=== PATIENT | female | born 1935 | race Caucasian/White ===

== ENCOUNTER 2016-10-06 11:49 | Outpatient (CLI) | payer MEDICARE, MEDICAID | END 2016-10-06 11:50 | disposition home or self-care (01) | DX: M51.34 Other intervertebral disc degeneration, thoracic region (principal); M51.36 Other intervertebral disc degeneration, lumbar region ==

== ENCOUNTER 2017-10-16 15:08 | Emergency (ER) | payer MEDICARE, MEDICAID ==
--- NOTE | 2017-10-16 16:00 | ED Physician Documentation ---
History of Present Illness - Stated complaint Stated Complaint: N/V/DIZZY/COUGH - Chief complaint Chief Complaint: Abd Pain - History obtained from History obtained from: Patient - History of Present Illness Timing: How many days ago (4) - Treatment prior to arrival Treatment prior to arrival: She was seen by her primary physician yesterday and was prescribed Zithromax. - Additonal information Additional information: The patient is a pleasant 82-year-old female who presents with cough of 4 days duration. She reports that it is worse since yesterday. Her cough is nonproductive. She reports chills and sweats. She denies chest pain or shortness of breath. She denies headache or sore throat. She reports nausea, with occasional dry heaves. She denies diarrhea. She denies history of similar symptoms in the past. She was seen by her primary physician yesterday and was started on Zithromax. Her past medical history is significant for coronary artery disease, status post coronary stent. Review of Systems Constitutional: reports: Chills, Sweats Nose: denies: Congestion Throat: denies: Sore throat Cardiac: denies: Chest pain / pressure, Palpitations Respiratory: denies: Dyspnea, Cough GI: reports: Nausea, Vomiting (Occasional dry heaves.). 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 Cardiovascular: Coronary stent - Present Medications Home Medications: Ambulatory Orders Medication Instructions Recorded Confirmed Amlodipine Besylate 10 mg PO DAILY 12/15/14 12/15/14 Aspirin 325 mg ORAL DAILY 12/15/14 12/15/14 Carvedilol 6.25 mg PO BID 12/15/14 12/15/14 Ezetimibe [Zetia] 10 mg PO QD 12/15/14 12/15/14 Lisinopril [Prinivil] 5 mg PO DAILY 12/15/14 12/15/14 traMADol [Ultram] 50 mg PO Q4-6H 12/15/14 12/15/14 Benzonatate [Tessalon Perle] 100 mg PO BID PRN #14 capsule 10/16/17 - Allergies Allergies/Adverse Reactions: Allergies Allergy/AdvReac Type Severity Reaction Status Date / Time diphtheria toxoid,fluid Allergy Unknown Verified 10/16/17 15:22 metformin Allergy Unknown Verified 10/16/17 15:22 Penicillins Allergy Hives Verified 10/16/17 15:22 Fknccsf-Ouh-Yfp Reductase Allergy Unknown Verified 10/16/17 15:22 Inhibitor metals AdvReac Unknown Uncoded 12/15/14 15:14 - Social History Does the pt smoke?: No Smoking Status: Never smoker Does the pt drink ETOH?: No Does the pt have substance abuse?: No - Immunizations Immunizations are current?: Yes PD ED PE NORMAL - Vitals Vital signs reviewed: Yes (hypertensive) - General General: Alert and oriented X 3, Well developed/nourished - HEENT HEENT: Atraumatic, EOMI, Ears normal, Moist mucous membranes, Pharynx benign - Neck Neck: Supple, no meningeal sign, No adenopathy, No JVD - Cardiac Cardiac: Other (Regular rate, irregularly irregular rhythm.) - Respiratory Respiratory: Clear bilaterally, Other (Occasional coughing.) - Abdomen Abdomen: Soft, Non tender - Back Back: No CVA TTP - Derm Derm: No rash - Extremities Extremities: No edema, No calf tenderness / cord - Neuro Neuro: Alert and oriented X 3, No motor deficit, Normal speech Results - Vitals Vitals: Oxygen O2 Source Room air - EKG (time done) 16:02 Rate: Rate (enter#) (74) Rhythm: Atrial fibrillation [place]: Normal Intervals: Prolonged QT - Labs Labs: Laboratory Tests 10/16/17 10/16/17 10/16/17 15:58 16:25 16:25 WBC 5.3 RBC 4.25 Hgb 12.7 Hct 38.0 MCV 89.3 MCH 30.0 MCHC 33.5 RDW 12.8 Plt Count 174 MPV 7.2 L Neut # 3.8 Lymph # 0.7 L [place] # 0.7 Eos # 0.0 Baso # 0.1 Absolute Nucleated RBC 0.00 Nucleated RBC % 0.0 Sodium 135 Potassium 3.5 Chloride 95 L Carbon Dioxide 24 Anion Gap 16.0 H BUN 14 Creatinine 0.7 Estimated GFR (MDRD) 80 L Glucose 144 H Calcium 8.5 Troponin I B-Natriuretic Peptide Influenza A (Rapid) Negative Influenza B (Rapid) Negative Influenza Types A,B Ag - 10/16/17 10/16/17 16:25 16:25 WBC RBC Hgb Hct MCV MCH MCHC RDW Plt Count MPV Neut # Lymph # [place] # Eos # Baso # Absolute Nucleated RBC Nucleated RBC % Sodium Potassium Chloride Carbon Dioxide Anion Gap BUN Creatinine Estimated GFR (MDRD) Glucose Calcium Troponin I < 0.04 B-Natriuretic Peptide 369 H Influenza A (Rapid) Influenza B (Rapid) Influenza Types A,B Ag - Rads (name of study) 2-view CXR Radiology: Prelim report reviewed, EMP read contemporaneously, See rad report ( No consolidation. No pneumothorax or effusion.) PD MEDICAL DECISION MAKING - ED course Complexity details: reviewed old records, reviewed results, re-evaluated patient , considered differential, d/w patient ED course: The patient's presentation is most consistent with acute viral bronchitis. Chest x-ray reveals no evidence of pneumonia or vascular congestion. Electrocardiogram reveals atrial fibrillation with a controlled rate in the 70s. She denies any prior history of atrial fibrillation, and is not on anticoagulant medication. Her troponin is normal, but her BNP is slightly elevated at 369. Clinical presentation does not suggest congestive heart failure. I discussed with her the results of her workup, the importance of outpatient follow-up, as well as potentially worrisome signs or symptoms that should prompt reevaluation in the emergency department. She is being discharged with prescription for Tessalon Perles. Departure - Departure Disposition: 01 Home, Self Care Clinical Impression: Bronchitis Atrial fibrillation Qualifiers: Atrial fibrillation type: unspecified Qualified Code(s): I48.91 - Unspecified atrial fibrillation Condition: Stable Instructions: ED Afib, ED URI Viral Follow-Up: Sabi Perez MD [Primary Care Provider] - Prescriptions: Benzonatate [Tessalon Perle] 100 mg PO BID PRN #14 capsule PRN Reason: Cough Comments: You can use Tylenol as needed for fever or discomfort. You can take Tessalon as prescribed if needed for cough. Go ahead and complete the antibiotic that was prescribed by Dr. Perez. Follow up with your primary physician within 1 week. Call to schedule an appointment. Return to the emergency department if you develop increasing difficulty breathing, or otherwise worsening symptoms. Discharge Date/Time: 10/16/17 17:42
[2017-10-16 16:33] LABS: BASOPHILS # (AUTO) 0.1 10^3/uL (0.0-0.1); BASOPHILS % (AUTO) 1.5 %; EOSINOPHILS % (AUTO) 0.1 %; HGB - HEMOGLOBIN 12.7 g/dL (12.0-16.0); LYMPHOCYTES # (AUTO) 0.7 10^3/uL (1.5-3.5); LYMPHOCYTES % (AUTO) 13.2 %; MEAN CORPUSCULAR HGB CONC 33.5 g/dL (32.0-36.0); MEAN CORPUSCULAR VOLUME 89.3 fL (81.0-99.0); MEAN PLATELET VOLUME 7.2 fL (7.9-10.8); MONOCYTES # (AUTO) 0.7 10^3/uL (0.0-1.0); MONOCYTES % (AUTO) 13.5 %; NEUTROPHILS # (AUTO) 3.8 10^3/uL (1.5-6.6); NEUTROPHILS % (AUTO) 71.7 %; PLT - PLATELET COUNT 174 10^3/uL (130-450); RED BLOOD COUNT 4.25 10^6/uL (4.20-5.40); RED CELL DISTRIBUTION WIDTH 12.8 % (12.0-15.0); WHITE BLOOD COUNT 5.3 x10^3/uL (4.8-10.8)
[2017-10-16 16:43] LABS: CALCIUM 8.5 mg/dL (8.5-10.3); CREATININE 0.7 mg/dL (0.4-1.0)
[2017-10-16 16:58] VITALS: BP 148/86
--- NOTE | 2017-10-16 17:06 | XRAY Preliminary Report ---
Exam: XR CHEST 2 VIEW X-RAY IMPRESSION: 1. No consolidation. 2. No pneumothorax or effusion. [facility] SITE ID: [id number]
--- NOTE | 2017-10-16 17:09 | XRAY Report ---
EXAM: CHEST RADIOGRAPHY EXAM DATE: 10/16/2017 04:17 PM. CLINICAL HISTORY: Cough with sweats. COMPARISON: 02/05/2011. TECHNIQUE: 2 views. FINDINGS: Lungs/Pleura: No consolidation, effusions or pneumothorax. Mild bilateral bronchial wall thickening. Mediastinum: Heart and mediastinal contours are unremarkable. Other: None. IMPRESSION: 1. No consolidation. 2. No pneumothorax or effusion. [facility] Referring Provider Line: [phone] SITE ID: [id number]
== END 2017-10-16 17:42 | disposition home or self-care (01) ==
LOC: ED 15:08
DX: J40 Bronchitis, not specified as acute or chronic (principal); I48.91 Unspecified atrial fibrillation; I10 Essential (primary) hypertension; Z95.5 Presence of coronary angioplasty implant and graft; Z79.82 Long term (current) use of aspirin; I25.10 Atherosclerotic heart disease of native coronary artery without angina pectoris
CPT/HCPCS: 36415; 71046; 80048; 83880; 84484; 85025; 87275; 87276; 93005; 99283; 99284

== ENCOUNTER 2017-10-21 22:49 | Outpatient (CLI) | payer MEDICARE, MEDICAID | END 2017-10-21 22:50 | disposition short-term general hospital (02) | LOC: EMS 22:49 | PROVIDERS: ATTEND Surgery | DX: R07.89 Other chest pain (principal); R06.02 Shortness of breath | CPT/HCPCS: A0425; A0427 ==

== ENCOUNTER 2017-12-11 08:25 | Outpatient (CLI) | payer MEDICARE, MEDICAID ==
[2017-12-11 09:08] LABS: CALCIUM 8.7 mg/dL (8.5-10.3); CREATININE 0.8 mg/dL (0.4-1.0)
== END 2017-12-11 08:26 | disposition home or self-care (01) ==
LOC: LAB 08:25
PROVIDERS: ATTEND Registered Nurse
DX: I10 Essential (primary) hypertension (principal); I25.118 Atherosclerotic heart disease of native coronary artery with other forms of angina pectoris; E78.5 Hyperlipidemia, unspecified
CPT/HCPCS: 36415; 80048

== ENCOUNTER 2018-02-15 09:37 | Outpatient (CLI) | payer MEDICARE, MEDICAID ==
--- NOTE | 2018-02-15 11:28 | XRAY Report ---
THREE VIEW LEFT FOOT: 02/15/2018 CLINICAL INDICATION: Pain. FINDINGS: AP, lateral, oblique views of the left foot demonstrate osteoarthritis of the first metatarsophalangeal joint and interphalangeal joints. There is no evidence of acute fracture or dislocation. No radiopaque foreign body is seen in the soft tissues. IMPRESSION: OSTEOARTHRITIS. NO EVIDENCE OF ACUTE FRACTURE. TD: 02/15/2018 10:39
== END 2018-02-15 09:38 | disposition home or self-care (01) ==
LOC: DI 09:37
PROVIDERS: ATTEND Internal Medicine
DX: M19.072 Primary osteoarthritis, left ankle and foot (principal)

== ENCOUNTER 2018-02-19 08:51 | Outpatient (CLI) | payer MEDICARE, MEDICAID ==
[2018-02-19 09:12] LABS: BASOPHILS # (AUTO) 0.1 10^3/uL (0.0-0.1); BASOPHILS % (AUTO) 2.7 %; EOSINOPHILS # (AUTO) 0.1 10^3/uL (0.0-0.7); EOSINOPHILS % (AUTO) 2.9 %; HGB - HEMOGLOBIN 13.1 g/dL (12.0-16.0); LYMPHOCYTES # (AUTO) 1.4 10^3/uL (1.5-3.5); MEAN CORPUSCULAR HGB CONC 33.8 g/dL (32.0-36.0); MEAN CORPUSCULAR VOLUME 88.9 fL (81.0-99.0); MEAN PLATELET VOLUME 7.2 fL (7.9-10.8); MONOCYTES # (AUTO) 0.5 10^3/uL (0.0-1.0); MONOCYTES % (AUTO) 10.6 %; NEUTROPHILS # (AUTO) 2.6 10^3/uL (1.5-6.6); NEUTROPHILS % (AUTO) 53.8 %; PLT - PLATELET COUNT 254 10^3/uL (130-450); RED BLOOD COUNT 4.37 10^6/uL (4.20-5.40); RED CELL DISTRIBUTION WIDTH 13.1 % (12.0-15.0); WHITE BLOOD COUNT 4.8 x10^3/uL (4.8-10.8)
[2018-02-19 09:23] LABS: BILIRUBIN,URINE NEGATIVE (NEGATIVE); GLUCOSE, URINE (UA) NEGATIVE (NEGATIVE); KETONES,URINE (UA) NEGATIVE (NEGATIVE); LEUKOCYTE ESTERASE, URINE TRACE (NEGATIVE); NITRITE,URINE NEGATIVE (NEGATIVE); OCCULT BLOOD,URINE NEGATIVE (NEGATIVE); PH,URINE 7.5 PH (5.0-7.5); PROTEIN,URINE NEGATIVE (NEGATIVE); UROBILINOGEN,URINE 0.2 (NORMAL) E.U./dL (NORMAL)
[2018-02-19 09:29] LABS: ALBUMIN 4.3 g/dL (3.2-5.5); ALBUMIN/GLOBULIN RATIO 1.4 (1.0-2.2); ALKALINE PHOSPHATASE 54 IU/L (42-121); ALT ALANINE AMINOTRANSFERASE 15 IU/L (10-60); AST ASPARTATE AMINOTRANSFERASE 22 IU/L (10-42); BILIRUBIN,TOTAL 0.7 mg/dL (0.2-1.0); BUN - BLOOD UREA NITROGEN 14 mg/dL (6-20); CALCIUM 9.2 mg/dL (8.5-10.3); CARBON DIOXIDE - CO2 27 mmol/L (21-32); CHLORIDE 103 mmol/L (101-111); CHOL/HDL RATIO 2.6 (<4.4); CHOLESTEROL 152 mg/dL; CK- CREATINE KINASE 42 IU/L (22-269); CREATININE 0.6 mg/dL (0.4-1.0); GFR - MDRD 95 (>89); GLUCOSE 125 mg/dL (70-100); HDL CHOLESTEROL 59 mg/dL; LDL CHOLESTEROL,CALCULATED 74 mg/dL; LDL/HDL RATIO 1.3 (<4.4); SODIUM 137 mmol/L (135-145); TOTAL PROTEIN 7.3 g/dL (6.7-8.2); VLDL CHOLESTEROL 19 mg/dL
[2018-02-19 09:34] LABS: CREATININE,URINE 25.8 mg/dL; MICROALBUM/CREATININE RATIO,UR 108.5 ug/mg (<30.0); MICROALBUMIN,URINE 2.8 mg/dL (0-300.0)
[2018-02-19 09:39] LABS: CLARITY,URINE CLEAR (CLEAR)
[2018-02-19 09:40] LABS: BACTERIA,URINE None Seen /HPF (None Seen); RBC,URINE 0-5 /HPF (0-5); SQUAMOUS EPITHELIAL CELL,UR RARE Squamous (<= Few)
[2018-02-19 10:13] LABS: HB2 TOTAL 14.5 g/dL; HEMOGLOBIN A1C 0.71 g/dL; HEMOGLOBIN A1C % 6.6 % (4.6-6.2)
== END 2018-02-19 08:52 | disposition home or self-care (01) ==
LOC: LAB 08:51
PROVIDERS: ATTEND Internal Medicine
DX: Z79.899 Other long term (current) drug therapy (principal); I10 Essential (primary) hypertension; I25.10 Atherosclerotic heart disease of native coronary artery without angina pectoris; I48.92 Unspecified atrial flutter; M19.90 Unspecified osteoarthritis, unspecified site; M54.9 Dorsalgia, unspecified; E78.5 Hyperlipidemia, unspecified; E11.9 Type 2 diabetes mellitus without complications; L40.9 Psoriasis, unspecified; A60.9 Anogenital herpesviral infection, unspecified; C44.91 Basal cell carcinoma of skin, unspecified
CPT/HCPCS: 36415; 80053; 80061; 81001; 81003; 82043; 82550; 82570; 83036; 83721; 84443; 85025; 87086; 87181

== ENCOUNTER 2018-06-22 11:36 | Emergency (ER) | payer MEDICARE, MEDICAID ==
[2018-06-22 12:03] LABS: BASOPHILS # (AUTO) 0.1 10^3/uL (0.0-0.1); BASOPHILS % (AUTO) 1.5 %; EOSINOPHILS # (AUTO) 0.1 10^3/uL (0.0-0.7); EOSINOPHILS % (AUTO) 1.9 %; HGB - HEMOGLOBIN 12.5 g/dL (12.0-16.0); LYMPHOCYTES # (AUTO) 1.4 10^3/uL (1.5-3.5); LYMPHOCYTES % (AUTO) 23.2 %; MEAN CORPUSCULAR HGB CONC 35.1 g/dL (32.0-36.0); MEAN CORPUSCULAR VOLUME 88.3 fL (81.0-99.0); MEAN PLATELET VOLUME 6.8 fL (7.9-10.8); MONOCYTES # (AUTO) 0.6 10^3/uL (0.0-1.0); MONOCYTES % (AUTO) 9.6 %; NEUTROPHILS # (AUTO) 3.8 10^3/uL (1.5-6.6); NEUTROPHILS % (AUTO) 63.8 %; PLT - PLATELET COUNT 229 10^3/uL (130-450); RED BLOOD COUNT 4.04 10^6/uL (4.20-5.40); RED CELL DISTRIBUTION WIDTH 13.1 % (12.0-15.0)
[2018-06-22 12:13] LABS: ALBUMIN 4.3 g/dL (3.2-5.5); ALBUMIN/GLOBULIN RATIO 1.6 (1.0-2.2); BILIRUBIN,TOTAL 0.7 mg/dL (0.2-1.0); CALCIUM 9.1 mg/dL (8.5-10.3); CREATININE 0.7 mg/dL (0.4-1.0)
--- NOTE | 2018-06-22 12:16 | ED Physician Documentation ---
History of Present Illness - Stated complaint Stated Complaint: L ARM PX - Chief complaint Chief Complaint: Cardiac - Additonal information Additional information: 83-year-old female presents the emergency department with pain in her left bicep which started this morning around 6 AM when she awoke. Yesterday the patient reports working in her garden moving would. The patient denies any trauma or injury. The patient denies swelling of the left arm, redness or pain in any of the joints. The patient denies chest pain, dyspnea on exertion, shortness of breath or other associated symptoms. Symptoms are described as mild. No triggering factors. No relieving factors. Review of Systems Constitutional: denies: Fever, Fatigue Eyes: denies: Loss of vision Ears: denies: Ear pain Nose: denies: Rhinorrhea / runny nose Throat: denies: Dental pain / toothache Cardiac: denies: Chest pain / pressure Respiratory: denies: Cough GI: denies: Abdominal Pain : denies: Dysuria, Discharge Musculoskeletal: reports: Extremity pain. 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 AND SAFETY: Hysterectomy Cardiovascular: Coronary stent - Present Medications Home Medications: Ambulatory Orders Medication Instructions Recorded Confirmed Amlodipine Besylate 10 mg PO DAILY 12/15/14 12/15/14 Aspirin 325 mg ORAL DAILY 12/15/14 12/15/14 Carvedilol 6.25 mg PO BID 12/15/14 12/15/14 Ezetimibe [Zetia] 10 mg PO QD 12/15/14 12/15/14 Lisinopril [Prinivil] 5 mg PO DAILY 12/15/14 12/15/14 traMADol [Ultram] 50 mg PO Q4-6H 12/15/14 12/15/14 Benzonatate [Tessalon Perle] 100 mg PO BID PRN #14 capsule 10/16/17 - Allergies Allergies/Adverse Reactions: Allergies Allergy/AdvReac Type Severity Reaction Status Date / Time diphtheria toxoid,fluid Allergy Unknown Verified 10/16/17 15:22 metformin Allergy Unknown Verified 10/16/17 15:22 Penicillins Allergy Hives Verified 10/16/17 15:22 Qbtdfzg-Uby-Czc Reductase Allergy Unknown Verified 10/16/17 15:22 Inhibitor metals AdvReac Unknown Uncoded 12/15/14 15:14 - Social History Does the pt smoke?: No Smoking Status: Never smoker Does the pt drink ETOH?: No Does the pt have substance abuse?: No - Immunizations Immunizations are current?: Yes - POLST Patient has POLST: Yes PD ED PE NORMAL - General General: Alert and oriented X 3, No acute distress - HEENT HEENT: Atraumatic, PERRL, EOMI, Moist mucous membranes - Neck Neck: Supple, no meningeal sign - Cardiac Cardiac: RRR, Strong equal pulses - Respiratory Respiratory: No respiratory distress, Clear bilaterally - Abdomen Abdomen: Soft, Non tender - Derm Derm: Normal color, No rash - Extremities Extremities: No deformity, Normal ROM s pain, No edema - Neuro Neuro: Alert and oriented X 3, Normal speech - Psych Psych: Normal affect PD ED PE EXPANDED - Extremities YUE UE/Hands Visual: 1 - tenderness (The patient has point tenderness in the biceps muscle, there is no swelling of the left extremity when compared to the right, the patient has normal active range of motion of the shoulder, elbow and wrist. The patient has brisk cap refill and a normal radial pulse. There is no skin changes) Results - Vitals Vitals: Vital Signs - 24 hr 06/22/18 06/22/18 11:42 12:05 Temperature 36.1 C L Heart Rate 65 74 Respiratory 16 16 Rate Blood Pressure 152/71 H 158/75 H O2 Saturation 98 96 Oxygen O2 Source Room air - EKG (time done) 12:01 Rate: Rate (enter#) Rhythm: NSR [place]: Normal Intervals: Normal [place] QRS: Normal Ischemia: Normal ST segments - Labs Labs: Laboratory Tests 06/22/18 06/22/18 06/22/18 11:56 11:56 11:56 WBC 6.0 RBC 4.04 L Hgb 12.5 Hct 35.6 L MCV 88.3 MCH 31.0 MCHC 35.1 RDW 13.1 Plt Count 229 MPV 6.8 L Neut # (Auto) 3.8 Lymph # (Auto) 1.4 L [place] # (Auto) 0.6 Eos # (Auto) 0.1 Baso # (Auto) 0.1 Absolute Nucleated RBC 0.00 Nucleated RBC % 0.0 Sodium 134 L Potassium 3.7 Chloride 97 L Carbon Dioxide 28 Anion Gap 9.0 BUN 9 Creatinine 0.7 Estimated GFR (MDRD) 80 L Glucose 132 H Calcium 9.1 Total Bilirubin 0.7 AST 23 ALT 20 Alkaline Phosphatase 57 Troponin I < 0.04 Total Protein 7.0 Albumin 4.3 Globulin 2.7 Albumin/Globulin Ratio 1.6 Lipase 39 - Rads (name of study) CXR Radiology: Final report received (No acute cardiopulmonary abnormality. ) PD MEDICAL DECISION MAKING - ED course ED course: The patient's symptoms the related to pain in her biceps muscle. The patient's workup does not reveal any acute abnormality at this time that would necessitate admission to the hospital or further workup in the emergency department. Also there is no clinical evidence to suggest upper extremity DVT or acute arterial occlusion or infectious etiology for the source of her pain. The patient currently appears appropriate for discharge and ongoing workup as an outpatient. I discussed warning signs and recommended returning for any worsening or concerns. Departure - Departure Disposition: 01 Home, Self Care Clinical Impression: Left arm pain Condition: Good Instructions: ED Strain Muscle Ext Follow-Up: Sabi Perez MD [Primary Care Provider] - Within 1 week Comments: Please follow-up with primary care. Please return to the emergency department for any worsening or any concerns.
--- NOTE | 2018-06-22 12:39 | XRAY Report ---
Reason: Left arm pain, dizziness Procedure Date: 06/22/2018 Accession Number: [id number] / [id number] Procedure: XR - Chest 2 View X-Ray CPT Code: 79742 FULL RESULT: EXAM: CHEST RADIOGRAPHY EXAM DATE: 06/22/2018 12:30 PM. CLINICAL HISTORY: Left arm pain, dizziness. COMPARISON: Chest radiograph from 10/16/2017. TECHNIQUE: 2 views. FINDINGS: Lungs/Pleura: No focal airspace opacities. No pleural effusion or pneumothorax. Mediastinum: Cardiomediastinal contour and pulmonary vasculature are within normal limits. Other: None. IMPRESSION: No acute cardiopulmonary abnormality. [facility]
[2018-06-22 13:14] VITALS: BP 146/69
== END 2018-06-22 13:21 | disposition home or self-care (01) ==
LOC: ED 11:36
DX: M79.622 Pain in left upper arm (principal); I10 Essential (primary) hypertension; Z79.82 Long term (current) use of aspirin
CPT/HCPCS: 36415; 71046; 80053; 83690; 84484; 85025; 93005; 99283; 99284

== ENCOUNTER 2018-12-13 07:19 | Outpatient (CLI) | payer MEDICARE, MEDICAID | END 2018-12-13 07:20 | disposition critical access hospital (66) | LOC: EMS 07:19 | PROVIDERS: ATTEND Surgery | DX: R05 Cough (principal); R06.02 Shortness of breath; R53.1 Weakness | CPT/HCPCS: A0425; A0429 ==

== ENCOUNTER 2018-12-13 07:31 | Emergency (ER) | payer MEDICARE, MEDICAID ==
--- NOTE | 2018-12-13 07:40 | ED Physician Documentation ---
PD HPI URI - Stated complaint Stated Complaint: COUGH - History obtained from History obtained from: Patient - History of Present Illness Timing - onset: How many days ago (She has had for 5 days of progressive cough with some dyspnea and wheezing. She is also having some positional left thoracic pain for a day or 2 prior to that and was seen in the office with early cough in the back pain. She was prescribed a muscle relaxant and a pain medicine and states she felt somewhat confused or lightheaded after taking the muscle relaxant. The cough has progressively worsened. She has felt some shortness of breath and wheezing the last day or 2. She denies fevers. She is nauseous.) Timing details: Gradual onset, Still present Contributing factors: No: Sick contact Similar symptoms before: Has not had sx before Recently seen: Not recently seen Review of Systems Constitutional: reports: Fever, Chills, Myalgias Nose: reports: Congestion. denies: Rhinorrhea / runny nose Throat: denies: Sore throat Cardiac: reports: Chest pain / pressure (with coughing). 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 : None HEENT: None Psych: Other Musculoskeletal: Chronic back pain Derm: None - Past Surgical History Past Surgical History: Yes Ortho: Other /CURRICULUM ASSISTANT PRINCIPAL: Hysterectomy Cardiovascular: Coronary stent - Present Medications Home Medications: Ambulatory Orders Medication Instructions Recorded Confirmed Amlodipine Besylate 10 mg PO DAILY 12/15/14 12/15/14 Aspirin 325 mg ORAL DAILY 12/15/14 12/15/14 Carvedilol 6.25 mg PO BID 12/15/14 12/15/14 Ezetimibe [Zetia] 10 mg PO QD 12/15/14 12/15/14 Lisinopril [Prinivil] 5 mg PO DAILY 12/15/14 12/15/14 traMADol [Ultram] 50 mg PO Q4-6H 12/15/14 12/15/14 Benzonatate [Tessalon Perle] 100 mg PO BID PRN #14 capsule 10/16/17 Albuterol Sulf [Ventolin Hfa 2 puffs INH Q4HR PRN #1 inhaler 12/13/18 Inhaler] Benzonatate [Tessalon Perle] 100 mg PO TID PRN #25 capsule 12/13/18 Dexamethasone [Decadron] 4 mg PO DAILY #5 tablet 12/13/18 Ondansetron Odt [Zofran] 4 mg TL Q6H PRN #10 tablet 12/13/18 Oseltamivir [Tamiflu] 75 mg PO BID #10 capsule 12/13/18 Potassium Chloride 10 meq PO DAILY #10 tablet.er 12/13/18 - Allergies Allergies/Adverse Reactions: Allergies Allergy/AdvReac Type Severity Reaction Status Date / Time diphtheria toxoid,fluid Allergy Unknown Verified 12/13/18 07:41 metformin Allergy Unknown Verified 12/13/18 07:41 Penicillins Allergy Hives Verified 12/13/18 07:41 Joqnwjj-Evp-Ohp Reductase Allergy Unknown Verified 12/13/18 07:41 Inhibitor metals AdvReac Unknown Uncoded 12/13/18 07:41 - Social History Does the pt smoke?: No Smoking Status: Never smoker Does the pt drink ETOH?: No Does the pt have substance abuse?: No - Immunizations Immunizations are current?: Yes - POLST Patient has POLST: Yes PD ED PE NORMAL - Vitals Vital signs reviewed: Yes - General General: Alert and oriented X 3, No acute distress, Well developed/nourished - HEENT HEENT: Moist mucous membranes, Pharynx benign - Neck Neck: Supple, no meningeal sign, No adenopathy - Cardiac Cardiac: RRR, No murmur - Respiratory Respiratory: No respiratory distress, Clear bilaterally - Abdomen Abdomen: Soft, Non tender, Non distended - Derm Derm: Normal color, Warm and dry - Extremities Extremities: No deformity, No tenderness to palpate, No calf tenderness / cord Results - Vitals Vitals: Vital Signs - 24 hr 12/13/18 12/13/18 12/13/18 07:34 08:19 08:40 Temperature 36.1 C L Heart Rate 65 68 71 Respiratory 20 19 23 Rate Blood Pressure 176/76 H 170/74 H O2 Saturation 96 94 12/13/18 12/13/18 12/13/18 09:33 09:54 11:12 Temperature 36.9 C 36.9 C Heart Rate 64 59 L 72 Respiratory 19 12 20 Rate Blood Pressure 136/66 H 140/72 H O2 Saturation 94 95 Oxygen O2 Source Room air - Labs Labs: Laboratory Tests 12/13/18 12/13/18 12/13/18 08:30 08:30 08:30 WBC 4.7 L RBC 4.04 L Hgb 12.2 Hct 35.2 L MCV 87.1 MCH 30.1 MCHC 34.5 RDW 12.9 Plt Count 189 MPV 7.2 L Neut # (Auto) 3.3 Lymph # (Auto) 0.7 L [place] # (Auto) 0.7 Eos # (Auto) 0.0 Baso # (Auto) 0.0 Absolute Nucleated RBC 0.00 Nucleated RBC % 0.0 Sodium 133 L Potassium 2.9 L Chloride 95 L Carbon Dioxide 28 Anion Gap 10.0 BUN 9 Creatinine 0.6 Estimated GFR (MDRD) 95 Glucose 129 H Calcium 8.2 L Magnesium 1.8 Total Bilirubin 1.0 AST 27 ALT 23 Alkaline Phosphatase 46 Troponin I < 0.04 B-Natriuretic Peptide Total Protein 6.7 Albumin 3.8 Globulin 2.9 Albumin/Globulin Ratio 1.3 Lipase 36 Influenza A (Rapid) Influenza B (Rapid) 12/13/18 12/13/18 08:30 08:30 WBC RBC Hgb Hct MCV MCH MCHC RDW Plt Count MPV Neut # (Auto) Lymph # (Auto) [place] # (Auto) Eos # (Auto) Baso # (Auto) Absolute Nucleated RBC Nucleated RBC % Sodium Potassium Chloride Carbon Dioxide Anion Gap BUN Creatinine Estimated GFR (MDRD) Glucose Calcium Magnesium Total Bilirubin AST ALT Alkaline Phosphatase Troponin I B-Natriuretic Peptide 414 H Total Protein Albumin Globulin Albumin/Globulin Ratio Lipase Influenza A (Rapid) POSITIVE H Influenza B (Rapid) Negative Departure - Departure Disposition: 01 Home, Self Care Clinical Impression: Cough, Influenza A, Hypokalemia Dyspnea Qualifiers: Dyspnea type: shortness of breath Qualified Code(s): R06.02 - Shortness of breath Condition: Stable Record reviewed to determine appropriate education?: Yes Instructions: ED Flu Follow-Up: Sabi Perez MD [Primary Care Provider] - Prescriptions: Albuterol Sulf [Ventolin Hfa Inhaler] 2 puffs INH Q4HR PRN #1 inhaler PRN Reason: Shortness Of Air/Wheezing Benzonatate [Tessalon Perle] 100 mg PO TID PRN #25 capsule PRN Reason: Cough Dexamethasone [Decadron] 4 mg PO DAILY #5 tablet Ondansetron Odt [Zofran] 4 mg TL Q6H PRN #10 tablet PRN Reason: Nausea / Vomiting Oseltamivir [Tamiflu] 75 mg PO BID #10 capsule Potassium Chloride 10 meq PO DAILY #10 tablet.er Comments: Stay well-hydrated. Ondansetron if needed for nausea. Albuterol inhaler 2-3 puffs 4 times a day for breathing to reduce wheezing and reduce cough. Decadron steroid for inflammation of the airways to improve on cough and general symptoms. Tamiflu antiviral to try to reduce the symptoms of the flu. Tylenol if needed for fevers and pains. Your flu test is positive. Your chest x-ray does not show any pneumonia. Your basic blood tests are okay, with exception of low potassium. Take a potassium supplement daily for 7-10 days. The medicine prescribed for your back was baclofen and continue to hold that/not take it. Discharge Date/Time: 12/13/18 11:23
[2018-12-13] MEDS ORDERED: ALBUTEROL NEB 2.5 MG/3 ML INH STA ×2 (07:59→09:42)
[2018-12-13] MEDS ORDERED: KETOROLAC 15 MG/ML VIAL IVP STA (08:00)
[2018-12-13] MEDS ORDERED: ONDANSETRON 4 MG/2 ML VIAL IVP STA (08:02)
[2018-12-13] MEDS ORDERED: ACETAMINOPHEN 325 MG TABLET PO STA (08:02)
--- NOTE | 2018-12-13 08:36 | XRAY Report ---
Reason: cough and wheezing for 5 days Procedure Date: 12/13/2018 Accession Number: [id number] / [id number] Procedure: XR - Chest 2 View X-Ray CPT Code: 22522 FULL RESULT: EXAM: CHEST RADIOGRAPHY EXAM DATE: 12/13/2018 08:16 AM. CLINICAL HISTORY: Cough and wheezing for 5 days. COMPARISON: CHEST 2 VIEW 06/22/2018 12:01 PM. TECHNIQUE: 2 views. FINDINGS: Lungs/Pleura: There is mild eventration of the anterior right hemidiaphragm. Lungs are clear and normal in volume. There is no focal consolidation, peribronchial cuffing, or generalized interstitial abnormality. There is no pneumothorax or pleural fluid. Mediastinum: Heart and mediastinal contours are unremarkable. Other: None. IMPRESSION: Negative chest. Lungs are clear. [facility]
[2018-12-13 08:45] LABS: BASOPHILS % (AUTO) 0.8 %; EOSINOPHILS % (AUTO) 0.3 %; HGB - HEMOGLOBIN 12.2 g/dL (12.0-16.0); LYMPHOCYTES # (AUTO) 0.7 10^3/uL (1.5-3.5); LYMPHOCYTES % (AUTO) 14.7 %; MEAN CORPUSCULAR HEMOGLOBIN 30.1 pg (27.0-31.0); MEAN CORPUSCULAR HGB CONC 34.5 g/dL (32.0-36.0); MEAN CORPUSCULAR VOLUME 87.1 fL (81.0-99.0); MEAN PLATELET VOLUME 7.2 fL (7.9-10.8); MONOCYTES # (AUTO) 0.7 10^3/uL (0.0-1.0); NEUTROPHILS # (AUTO) 3.3 10^3/uL (1.5-6.6); NEUTROPHILS % (AUTO) 70.2 %; PLT - PLATELET COUNT 189 10^3/uL (130-450); RED BLOOD COUNT 4.04 10^6/uL (4.20-5.40); RED CELL DISTRIBUTION WIDTH 12.9 % (12.0-15.0); WHITE BLOOD COUNT 4.7 x10^3/uL (4.8-10.8)
[2018-12-13 09:00] LABS: ALBUMIN 3.8 g/dL (3.2-5.5); ALBUMIN/GLOBULIN RATIO 1.3 (1.0-2.2); CALCIUM 8.2 mg/dL (8.5-10.3); CREATININE 0.6 mg/dL (0.4-1.0); MAGNESIUM 1.8 mg/dL (1.7-2.8); TOTAL PROTEIN 6.7 g/dL (6.7-8.2)
[2018-12-13] MEDS ORDERED: POTASSIUM BICARB 25 MEQ TABLET PO STA (09:15)
[2018-12-13] MEDS ORDERED: DEXAMETHASONE 10 MG/ML VIAL IVP STA (10:02)
[2018-12-13] MEDS ORDERED: BENZONATATE 100 MG CAPSULE PO STA (10:02)
[2018-12-13] MEDS ORDERED: OSELTAMIVIR 75 MG CAPSULE PO STA (10:02)
[2018-12-13 11:13] VITALS: BP 140/72
== END 2018-12-13 11:23 | disposition home or self-care (01) ==
LOC: EDUNIT# → ED 07:31
DX: J11.1 Influenza due to unidentified influenza virus with other respiratory manifestations (principal); E87.6 Hypokalemia; I48.91 Unspecified atrial fibrillation; R06.02 Shortness of breath; I10 Essential (primary) hypertension; E78.00 Pure hypercholesterolemia, unspecified; I25.10 Atherosclerotic heart disease of native coronary artery without angina pectoris; Z95.5 Presence of coronary angioplasty implant and graft; Z79.82 Long term (current) use of aspirin
CPT/HCPCS: 36415; 71046; 80053; 83690; 83735; 83880; 84484; 85025; 87275; 87276; 93005; 94640; 96374; 96375; 99283; 99284; A9270

== ENCOUNTER 2019-01-31 18:48 | Emergency (ER) | payer MEDICARE, MEDICAID ==
[2019-01-31 18:59] VITALS: BP 208/98
--- NOTE | 2019-01-31 19:07 | ED Physician Documentation ---
PD HPI LOWER EXT INJURY - Stated complaint Stated Complaint: L LEG LAC - Chief complaint Chief Complaint: Laceration - History obtained from History obtained from: Patient - History of Present Illness PD HPI LOW EXT INJURY LOCATION: Left, Lower leg Type of injury: Laceration Where injury occurred: Home Timing - onset: How many hours ago (1) Timing - duration: Hours (1) Timing - details: Abrupt onset Pain level max: 3 Pain level now: 1 Improved by: Rest Worsened by: Moving, Palpating Associated symptoms: No: Weakness, Numbness, Tingling, Swelling Contributing factors: No: Anticoagulated - Additional information Additional information: hit leg on stairs of pool. Review of Systems Skin: denies: Rash PD PAST MEDICAL HISTORY - Past Medical History Cardiovascular: Hypertension, High cholesterol, Coronary artery disease, Murmur Respiratory: None Endocrine/Autoimmune: None GI: None BUSINESS LAW PROFESSOR: None : None HEENT: None Psych: Other Musculoskeletal: Chronic back pain Derm: None - Past Surgical History Past Surgical History: Yes Ortho: Other /BUSINESS LAW PROFESSOR: Hysterectomy Cardiovascular: Coronary stent - Present Medications Home Medications: Ambulatory Orders Medication Instructions Recorded Confirmed Amlodipine Besylate 10 mg PO DAILY 12/15/14 12/15/14 Aspirin 325 mg ORAL DAILY 12/15/14 12/15/14 Carvedilol 6.25 mg PO BID 12/15/14 12/15/14 Ezetimibe [Zetia] 10 mg PO QD 12/15/14 12/15/14 Lisinopril [Prinivil] 5 mg PO DAILY 12/15/14 12/15/14 traMADol [Ultram] 50 mg PO Q4-6H 12/15/14 12/15/14 Benzonatate [Tessalon Perle] 100 mg PO BID PRN #14 capsule 10/16/17 Albuterol Sulf [Ventolin Hfa 2 puffs INH Q4HR PRN #1 inhaler 12/13/18 Inhaler] Benzonatate [Tessalon Perle] 100 mg PO TID PRN #25 capsule 12/13/18 Ondansetron Odt [Zofran] 4 mg TL Q6H PRN #10 tablet 12/13/18 Oseltamivir [Tamiflu] 75 mg PO BID #10 capsule 12/13/18 Potassium Chloride 10 meq PO DAILY #10 tablet.er 12/13/18 dexAMETHasone [Decadron] 4 mg PO DAILY #5 tablet 12/13/18 - Allergies Allergies/Adverse Reactions: Allergies Allergy/AdvReac Type Severity Reaction Status Date / Time diphtheria toxoid,fluid Allergy Unknown Verified 01/31/19 18:59 metformin Allergy Unknown Verified 01/31/19 18:59 Penicillins Allergy Hives Verified 01/31/19 18:59 Vdtylcn-Rss-Ogs Reductase Allergy Unknown Verified 01/31/19 18:59 Inhibitor metals AdvReac Unknown Uncoded 01/31/19 18:59 - Social History Does the pt smoke?: No Smoking Status: Never smoker Does the pt drink ETOH?: No Does the pt have substance abuse?: No - Immunizations Immunizations are current?: Yes - POLST Patient has POLST: Yes PD ED PE NORMAL - Vitals Vital signs reviewed: Yes - General General: Alert and oriented X 3, No acute distress - Derm Derm: Warm and dry - Extremities Extremities: Other (skin tear anterior weston. NVI. 3cm, linear.) - Neuro Neuro: Alert and oriented X 3 - Psych Psych: Normal mood, Normal affect Results - Vitals Vitals: Vital Signs - 24 hr 01/31/19 18:57 Temperature 36.6 C Heart Rate 95 Respiratory 18 Rate Blood Pressure 208/98 H O2 Saturation 97 Oxygen O2 Source Room air PD MEDICAL DECISION MAKING - ED course Complexity details: considered differential, d/w patient ED course: Skin tear was cleansed. Mepitel was placed over the wound. Bacitracin applied. We will follow-up with her doctor for wound care. Patient counseled regarding signs and symptoms for which I believe and urgent re-evaluation would be necessary. Patient with good understanding of and agreement to plan and is comfortable going home at this time This document was made in part using voice recognition software. While efforts are made to proofread this document, sound alike and grammatical errors may occur. Departure - Departure Disposition: 01 Home, Self Care Clinical Impression: Leg laceration Qualifiers: Encounter type: initial encounter Laterality: left Qualified Code(s): S81.812A - Laceration without foreign body, left lower leg, initial encounter Condition: Good Instructions: ED Laceration All Follow-Up: Sabi Perez MD [Primary Care Provider] - Within 3 Days Comments: Apply antibiotic ointment twice daily. Keep the wound clean. The Mepitel can be removed in approximately 10 days. You do need to have a tetanus shot with your doctor. Unfortunately all of the tetanus vaccinations that are stocked in the hospital have diphtheria with them as well. You have 3 days to obtain this. Return if you notice redness, swelling or drainage from the wound. Discharge Date/Time: 01/31/19 19:25
[2019-01-31] MEDS ORDERED: BACITRACIN OINT TOP STA (19:15)
[2019-01-31] MEDS ORDERED: BACITRACIN OINT TOP ONE (19:20)
== END 2019-01-31 19:25 | disposition home or self-care (01) ==
LOC: ED 18:48
DX: S81.812A Laceration without foreign body, left lower leg, initial encounter (principal); W22.8XXA Striking against or struck by other objects, initial encounter; Y93.11 Activity, swimming; Y92.008 Other place in unspecified non-institutional (private) residence as the place of occurrence of the external cause; I10 Essential (primary) hypertension; Z79.82 Long term (current) use of aspirin
CPT/HCPCS: 99282; 99283; A9270

== ENCOUNTER 2019-02-18 17:18 | Emergency (ER) | payer MEDICARE, MEDICAID ==
[2019-02-18 19:40] LABS: BASOPHILS # (AUTO) 0.1 10^3/uL (0.0-0.1); BASOPHILS % (AUTO) 1.9 %; EOSINOPHILS # (AUTO) 0.2 10^3/uL (0.0-0.7); EOSINOPHILS % (AUTO) 3.1 %; HGB - HEMOGLOBIN 13.8 g/dL (12.0-16.0); LYMPHOCYTES # (AUTO) 1.4 10^3/uL (1.5-3.5); LYMPHOCYTES % (AUTO) 18.2 %; MEAN CORPUSCULAR HEMOGLOBIN 30.6 pg (27.0-31.0); MEAN CORPUSCULAR HGB CONC 34.7 g/dL (32.0-36.0); MEAN CORPUSCULAR VOLUME 88.2 fL (81.0-99.0); MEAN PLATELET VOLUME 7.5 fL (7.9-10.8); MONOCYTES # (AUTO) 0.8 10^3/uL (0.0-1.0); MONOCYTES % (AUTO) 9.7 %; NEUTROPHILS # (AUTO) 5.4 10^3/uL (1.5-6.6); NEUTROPHILS % (AUTO) 67.1 %; PLT - PLATELET COUNT 257 10^3/uL (130-450); RED CELL DISTRIBUTION WIDTH 13.1 % (12.0-15.0)
[2019-02-18 20:00] LABS: ALBUMIN 4.6 g/dL (3.2-5.5); ALBUMIN/GLOBULIN RATIO 1.5 (1.0-2.2); BILIRUBIN,TOTAL 0.6 mg/dL (0.2-1.0); CALCIUM 9.4 mg/dL (8.5-10.3); CREATININE 0.6 mg/dL (0.4-1.0); TOTAL PROTEIN 7.7 g/dL (6.7-8.2)
--- NOTE | 2019-02-18 20:30 | ED Physician Documentation ---
History of Present Illness - Stated complaint Stated Complaint: FAST HB/LT MUNGUIA WEEPING - Chief complaint Chief Complaint: Ext Problem - History obtained from History obtained from: Patient - History of Present Illness Timing: Today Pain level now: 5 Improved by: nothing Worsened by: no apparent exacerbating factors - Additonal information Additional information: sustained left lower leg lac 2.5 weeks ago, today noted increasing swelling and redness surrounding the injury. Review of Systems Constitutional: denies: Fever, Chills, Sweats Skin: reports: Laceration (s) Musculoskeletal: reports: Extremity pain, Extremity swelling PD PAST MEDICAL HISTORY - Past Medical History Past Medical History: Yes Cardiovascular: Hypertension, High cholesterol, Coronary artery disease, [place], Murmur Respiratory: Pneumonia Neuro: None Endocrine/Autoimmune: None GI: None SENIOR SOLUTIONS ARCHITECT: None : None HEENT: Macular degeneration Psych: Anxiety, Other Musculoskeletal: Osteoarthritis, Chronic back pain Derm: Psoriasis - Past Surgical History Past Surgical History: Yes Ortho: Other /SENIOR SOLUTIONS ARCHITECT: Hysterectomy Cardiovascular: Coronary stent HEENT: Cataracts, Tonsil/Adenoidectomy Derm: Skin cancer surgery - Present Medications Home Medications: Ambulatory Orders Medication Instructions Recorded Confirmed Amlodipine Besylate 10 mg PO DAILY 12/15/14 02/18/19 Aspirin 325 mg ORAL DAILY 12/15/14 02/18/19 Carvedilol 6.25 mg PO BID 12/15/14 02/18/19 Ezetimibe [Zetia] 10 mg PO QD 12/15/14 02/18/19 Lisinopril [Prinivil] 5 mg PO DAILY 12/15/14 02/18/19 traMADol [Ultram] 50 mg PO Q4-6H PRN 12/15/14 02/18/19 Ondansetron Odt [Zofran] 4 mg TL Q6H PRN #10 tablet 12/13/18 02/18/19 Clindamycin HCl [Clindamycin 300MG 300 mg PO Q6H #27 capsule 02/18/19 CAP] - Allergies Allergies/Adverse Reactions: Allergies Allergy/AdvReac Type Severity Reaction Status Date / Time diphtheria toxoid,fluid Allergy Unknown Verified 02/18/19 17:31 metformin Allergy Unknown Verified 02/18/19 17:31 Penicillins Allergy Hives Verified 02/18/19 17:31 Zopgplc-Uef-Wbg Reductase Allergy Unknown Verified 02/18/19 17:31 Inhibitor metals AdvReac Unknown Uncoded 01/31/19 18:59 - Social History Does the pt smoke?: No Smoking Status: Never smoker Does the pt drink ETOH?: No Does the pt have substance abuse?: No - Immunizations Immunizations are current?: No Immunizations: No immun - POLST Patient has POLST: Yes PD ED PE NORMAL - Vitals Vital signs reviewed: Yes - General General: Alert and oriented X 3, No acute distress, Well developed/nourished - Cardiac Cardiac: RRR, No murmur - Respiratory Respiratory: No respiratory distress, Clear bilaterally PD ED PE EXPANDED - Extremities YUE LE visual: 1 - laceration (healing anterior pre-tibial laceration with moderate surrounding erythema and swelling), swelling Results - Vitals Vitals: Vital Signs - 24 hr 02/18/19 02/18/19 02/18/19 17:20 20:08 22:47 Temperature 36.7 C 36.6 C 37 C Heart Rate 63 67 88 Respiratory 16 16 16 Rate Blood Pressure 136/86 H 157/80 H 164/99 H O2 Saturation 96 95 95 Oxygen O2 Source Room air - Labs Labs: Laboratory Tests 02/18/19 02/18/19 19:07 19:07 WBC 8.0 RBC 4.50 Hgb 13.8 Hct 39.7 MCV 88.2 MCH 30.6 MCHC 34.7 RDW 13.1 Plt Count 257 MPV 7.5 L Neut # (Auto) 5.4 Lymph # (Auto) 1.4 L Bandera # (Auto) 0.8 Eos # (Auto) 0.2 Baso # (Auto) 0.1 Absolute Nucleated RBC 0.00 Nucleated RBC % 0.0 Sodium 137 Potassium 3.7 Chloride 101 Carbon Dioxide 23 Anion Gap 13.0 BUN 12 Creatinine 0.6 Estimated GFR (MDRD) 95 Glucose 136 H Calcium 9.4 Total Bilirubin 0.6 AST 26 ALT 21 Alkaline Phosphatase 67 Total Protein 7.7 Albumin 4.6 Globulin 3.1 Albumin/Globulin Ratio 1.5 Lipase 40 - Rads (name of study) LLE doppler US Radiology: Prelim report reviewed, See rad report PD MEDICAL DECISION MAKING - ED course Complexity details: reviewed old records, reviewed results, re-evaluated patient, considered differential, d/w patient Departure - Departure Disposition: 01 Home, Self Care Clinical Impression: Cellulitis Condition: Good Instructions: ED Infec Skin Cellulitis Follow-Up: Sabi Perez MD [Primary Care Provider] - (3-5 days for wound check) Prescriptions: Clindamycin HCl [Clindamycin 300MG CAP] 300 mg PO Q6H #27 capsule Discharge Date/Time: 02/18/19 22:54
--- NOTE | 2019-02-18 22:09 | Ultrasound Report ---
Reason: LLE swelling Procedure Date: 02/18/2019 Accession Number: [id number] / [id number] Procedure: US - Duplex Ext Veins Left CPT Code: FULL RESULT: EXAM: LEFT LOWER EXTREMITY VENOUS ULTRASOUND EXAM DATE: 02/18/2019 09:04 PM. CLINICAL HISTORY: LLE swelling. COMPARISON: DUPLEX EXT VEINS LEFT 06/11/2016 6:18 PM. TECHNIQUE: Real-time sonographic vascular imaging was performed by the rehabilitation services counselor through the lower extremity utilizing both color-flow and Doppler spectral analysis. Multiple telephone services sales representative static images were saved for review. FINDINGS: Common Femoral Vein (CFV): Normal. CFV-GSV Junction: Normal. Profunda Femoral Vein (PFV): Normal. Femoral Vein (FV) Prox: Normal. Femoral Vein (FV) Mid: Normal. Femoral Vein (FV) Dist: Normal. Popliteal Vein: Normal. Posterior Tibial Veins: Limited visualization, due to edema and habitus. Peroneal Veins: Limited visualization, due to edema and habitus. Other: None. IMPRESSION: No evidence for deep venous thrombosis. RADIA
[2019-02-18] MEDS ORDERED: CLINDAMYCIN 150 MG CAPSULE PO STA (22:41)
[2019-02-18 22:54] VITALS: BP 164/99
== END 2019-02-18 22:54 | disposition home or self-care (01) ==
LOC: ED 17:18
DX: L03.116 Cellulitis of left lower limb (principal); I48.92 Unspecified atrial flutter; Z79.82 Long term (current) use of aspirin; I10 Essential (primary) hypertension; I25.10 Atherosclerotic heart disease of native coronary artery without angina pectoris; I25.2 Old myocardial infarction; Z95.5 Presence of coronary angioplasty implant and graft; Z88.0 Allergy status to penicillin
CPT/HCPCS: 36415; 80053; 83690; 85025; 93005; 93971; 99283; A9270

== ENCOUNTER 2019-03-08 10:53 | Emergency (ER) | payer MEDICARE, MEDICAID ==
--- NOTE | 2019-03-08 12:32 | ED Physician Documentation ---
History of Present Illness - Stated complaint Stated Complaint: L LEG PX - Chief complaint Chief Complaint: Trauma Ext - History obtained from History obtained from: Patient - History of Present Illness Timing: Other (2 months ago) Pain level max: 0 Pain level now: 0 - Additonal information Additional information: Left lower extremity redness and swelling. States there are bumps. This is from a wound to the anterior tibia several months ago. She had been on clindamycin for cellulitis. This gave her diarrhea. This was last month. Review of Systems Constitutional: denies: Fever, Chills GI: denies: Vomiting Musculoskeletal: denies: Neck pain, Back pain Neurologic: denies: Headache PD PAST MEDICAL HISTORY - Past Medical History Cardiovascular: Hypertension, High cholesterol, Coronary artery disease, [place], Murmur Respiratory: Pneumonia Neuro: None Endocrine/Autoimmune: None GI: None FAMILY SUPPORT WORKER: None : None HEENT: Macular degeneration Psych: Anxiety, Other Musculoskeletal: Osteoarthritis, Chronic back pain Derm: Psoriasis - Past Surgical History Past Surgical History: Yes Ortho: Other /FAMILY SUPPORT WORKER: Hysterectomy Cardiovascular: Coronary stent HEENT: Cataracts, Tonsil/Adenoidectomy Derm: Skin cancer surgery - Present Medications Home Medications: Ambulatory Orders Medication Instructions Recorded Confirmed Amlodipine Besylate 10 mg PO DAILY 12/15/14 02/18/19 Aspirin 325 mg ORAL DAILY 12/15/14 02/18/19 Carvedilol 6.25 mg PO BID 12/15/14 02/18/19 Ezetimibe [Zetia] 10 mg PO QD 12/15/14 02/18/19 Lisinopril [Prinivil] 5 mg PO DAILY 12/15/14 02/18/19 traMADol [Ultram] 50 mg PO Q4-6H PRN 12/15/14 02/18/19 Ondansetron Odt [Zofran] 4 mg TL Q6H PRN #10 tablet 12/13/18 02/18/19 Clindamycin HCl [Clindamycin 300MG 300 mg PO Q6H #27 capsule 02/18/19 CAP] Mupirocin [Centany] 1 applic TP BID #1 oint...g. 03/08/19 - Allergies Allergies/Adverse Reactions: Allergies Allergy/AdvReac Type Severity Reaction Status Date / Time diphtheria toxoid,fluid Allergy Unknown Verified 02/18/19 17:31 metformin Allergy Unknown Verified 02/18/19 17:31 Penicillins Allergy Hives Verified 02/18/19 17:31 Kowzyba-Wtw-Ghz Reductase Allergy Unknown Verified 02/18/19 17:31 Inhibitor metals AdvReac Unknown Uncoded 01/31/19 18:59 - Social History Does the pt smoke?: No Smoking Status: Never smoker Does the pt drink ETOH?: No Does the pt have substance abuse?: No - Immunizations Immunizations are current?: No Immunizations: No immun - POLST Patient has POLST: Yes PD ED PE NORMAL - Vitals Vital signs reviewed: Yes - General General: Alert and oriented X 3, No acute distress - HEENT HEENT: Moist mucous membranes - Neck Neck: Supple, no meningeal sign - Derm Derm: Warm and dry - Extremities Extremities: Other (Left lower extremity. There is mild area edema with small papules and honey crusting.) - Neuro Neuro: Alert and oriented X 3 Results - Vitals Vitals: Vital Signs - 24 hr 03/08/19 11:07 Temperature 37.2 C Heart Rate 68 Respiratory 14 Rate Blood Pressure 155/79 H O2 Saturation 97 Oxygen O2 Source Room air PD MEDICAL DECISION MAKING - ED course Complexity details: considered differential, d/w patient ED course: Patient appears to have a minimal cellulitis, more likely impetigo. Given her multiple allergies, we will trial her on mupirocin cream first. If this does not work, she can be started on oral antibiotics with her doctor. Patient counseled regarding signs and symptoms for which I believe and urgent re- evaluation would be necessary. Patient with good understanding of and agreement to plan and is comfortable going home at this time This document was made in part using voice recognition software. While efforts are made to proofread this document, sound alike and grammatical errors may occur. Departure - Departure Disposition: 01 Home, Self Care Clinical Impression: Folliculitis Cellulitis Qualifiers: Site of cellulitis: extremity Site of cellulitis of extremity: lower extremity Laterality: left Qualified Code(s): L03.116 - Cellulitis of left lower limb Condition: Good Instructions: ED Infec Skin Cellulitis Follow-Up: Sabi Perez MD [Primary Care Provider] - Within 3 Days Prescriptions: Mupirocin [Centany] 1 applic TP BID #1 oint...g. Comments: Try the mupirocin. Follow-up with your doctor if this is not helping she will prescribe you antibiotics.
[2019-03-08 12:53] VITALS: BP 146/72
== END 2019-03-08 12:55 | disposition home or self-care (01) ==
LOC: ED 10:53
DX: L73.9 Follicular disorder, unspecified (principal); L03.116 Cellulitis of left lower limb; I10 Essential (primary) hypertension
CPT/HCPCS: 99283

== ENCOUNTER 2019-03-14 12:05 | Emergency (ER) | payer MEDICARE, MEDICAID ==
[2019-03-14 12:14] VITALS: BP 150/64
--- NOTE | 2019-03-14 13:18 | ED Physician Documentation ---
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 She was on clindamycin which was very helpful, but it gave her diarrhea. Since then it has recurred and she was on mupirocin which was not helpful. No fevers. No significant pain.) Review of Systems Constitutional: denies: Fever, Chills Respiratory: denies: Dyspnea, Cough GI: denies: Abdominal Pain, Nausea, Vomiting PD PAST MEDICAL HISTORY - Past Medical History Cardiovascular: Hypertension, High cholesterol, Coronary artery disease, [place], Murmur Respiratory: Pneumonia Neuro: None Endocrine/Autoimmune: None GI: None CALL CENTER RN: None : None HEENT: Macular degeneration Psych: Anxiety, Other Musculoskeletal: Osteoarthritis, Chronic back pain Derm: Psoriasis - Past Surgical History Past Surgical History: Yes Ortho: Other /CALL CENTER RN: Hysterectomy Cardiovascular: Coronary stent HEENT: Cataracts, Tonsil/Adenoidectomy Derm: Skin cancer surgery - Present Medications Home Medications: Ambulatory Orders Medication Instructions Recorded Confirmed Amlodipine Besylate 10 mg PO DAILY 12/15/14 02/18/19 Aspirin 325 mg ORAL DAILY 12/15/14 02/18/19 Carvedilol 6.25 mg PO BID 12/15/14 02/18/19 Ezetimibe [Zetia] 10 mg PO QD 12/15/14 02/18/19 Lisinopril [Prinivil] 5 mg PO DAILY 12/15/14 02/18/19 traMADol [Ultram] 50 mg PO Q4-6H PRN 12/15/14 02/18/19 Ondansetron Odt [Zofran] 4 mg TL Q6H PRN #10 tablet 12/13/18 02/18/19 Clindamycin HCl [Clindamycin 300MG 300 mg PO Q6H #27 capsule 02/18/19 CAP] Mupirocin [Centany] 1 applic TP BID #1 oint...g. 03/08/19 Cephalexin [Keflex] 500 mg PO Q6H #40 capsule 03/14/19 - Allergies Allergies/Adverse Reactions: Allergies Allergy/AdvReac Type Severity Reaction Status Date / Time diphtheria toxoid,fluid Allergy Unknown Verified 03/14/19 12:14 metformin Allergy Unknown Verified 03/14/19 12:14 Penicillins Allergy Hives Verified 03/14/19 12:14 Gsznqib-Duz-Ttf Reductase Allergy Unknown Verified 03/14/19 12:14 Inhibitor metals AdvReac Unknown Uncoded 03/14/19 12:14 - Social History Does the pt smoke?: No Smoking Status: Never smoker Does the pt drink ETOH?: No Does the pt have substance abuse?: No - Immunizations Immunizations are current?: No Immunizations: No immun - POLST Patient has POLST: Yes PD ED PE NORMAL - Vitals Vital signs reviewed: Yes - General General: Alert and oriented X 3, No acute distress - Extremities Extremities: Other (She has a slight weeping cellulitis to the anterior left weston, no tenderness.) - Neuro Neuro: Alert and oriented X 3, Normal speech Results - Vitals Vitals: Vital Signs - 24 hr 03/14/19 12:11 Temperature 36.7 C Heart Rate 56 L Respiratory 16 Rate Blood Pressure 150/64 H O2 Saturation 98 Oxygen O2 Source Room air Departure - Departure Disposition: 01 Home, Self Care Clinical Impression: Cellulitis Qualifiers: Site of cellulitis: extremity Site of cellulitis of extremity: lower extremity Laterality: left Qualified Code(s): L03.116 - Cellulitis of left lower limb Condition: Good Record reviewed to determine appropriate education?: Yes Health Concerns: Left leg cellulitis Plan of Treatment: Call your doctor to arrange a follow-up appointment, make the next available appointment. In the interim, return anytime if worse or if new symptoms develop. Care Goals: Improve infection Assessment: As above Instructions: Cellulitis Dc Prescriptions: Cephalexin [Keflex] 500 mg PO Q6H #40 capsule Comments: Call your doctor to arrange a follow-up appointment, make the next available appointment. In the interim, return anytime if worse or if new symptoms develop.
== END 2019-03-14 13:24 | disposition home or self-care (01) ==
LOC: ED 12:05
DX: L03.116 Cellulitis of left lower limb (principal); I10 Essential (primary) hypertension
CPT/HCPCS: 99282; 99283

== ENCOUNTER 2019-03-16 21:47 | Emergency (ER) | payer MEDICARE, MEDICAID ==
--- NOTE | 2019-03-16 23:13 | ED Physician Documentation ---
History of Present Illness - Stated complaint Stated Complaint: LT LEG HOT/FEEL BAD - Chief complaint Chief Complaint: Ext Problem - History obtained from History obtained from: Patient - History of Present Illness Timing: Prior to arrival - Additonal information Additional information: This is an 83-year-old woman who presents tonight because she just "felt awful". She was seen here 2 days ago for an infection in her left lower leg after she had scraped it and the wound had healed. She was placed on oral antibiotics of Keflex and also mupirocin ointment. She is here tonight because the leg felt hot she lives alone and did not have anyone to discuss it with so she figured she should come in. It is a little itchy around the site but more "irritated". She is not having any other skin rash. No nausea or vomiting. She is not diabetic.Of note the patient likes to swim and used a "new skin" product over this area before the rash got worse. She has had an ultrasound done on the leg since the injury because of swelling to make sure that there was no blood clot. Review of Systems Constitutional: denies: Fever GI: denies: Nausea, Vomiting Skin: reports: Rash, Abrasion (s) (Recent abrasion that has healed.) PD PAST MEDICAL HISTORY - Past Medical History Past Medical History: Yes Cardiovascular: Hypertension, High cholesterol, Coronary artery disease, [place], Murmur Respiratory: Pneumonia Neuro: None Endocrine/Autoimmune: None GI: None PASSENGER RELATIONS REPRESENTATIVE: None : None HEENT: Macular degeneration Psych: Anxiety, Other Musculoskeletal: Osteoarthritis, Chronic back pain Derm: Psoriasis - Past Surgical History Past Surgical History: Yes Ortho: Other /PASSENGER RELATIONS REPRESENTATIVE: Hysterectomy Cardiovascular: Coronary stent HEENT: Cataracts, Tonsil/Adenoidectomy Derm: Skin cancer surgery - Present Medications Home Medications: Ambulatory Orders Medication Instructions Recorded Confirmed Amlodipine Besylate 10 mg PO DAILY 12/15/14 02/18/19 Aspirin 325 mg ORAL DAILY 12/15/14 02/18/19 Carvedilol 6.25 mg PO BID 12/15/14 02/18/19 Ezetimibe [Zetia] 10 mg PO QD 12/15/14 02/18/19 Lisinopril [Prinivil] 5 mg PO DAILY 12/15/14 02/18/19 traMADol [Ultram] 50 mg PO Q4-6H PRN 12/15/14 02/18/19 Ondansetron Odt [Zofran] 4 mg TL Q6H PRN #10 tablet 12/13/18 02/18/19 Clindamycin HCl [Clindamycin 300MG 300 mg PO Q6H #27 capsule 02/18/19 CAP] Mupirocin [Centany] 1 applic TP BID #1 oint...g. 03/08/19 Cephalexin [Keflex] 500 mg PO Q6H #40 capsule 03/14/19 - Allergies Allergies/Adverse Reactions: Allergies Allergy/AdvReac Type Severity Reaction Status Date / Time diphtheria toxoid,fluid Allergy Unknown Verified 03/14/19 12:14 metformin Allergy Unknown Verified 03/14/19 12:14 Penicillins Allergy Hives Verified 03/14/19 12:14 Gbkzznu-Zkv-Zyl Reductase Allergy Unknown Verified 03/14/19 12:14 Inhibitor metals AdvReac Unknown Uncoded 03/14/19 12:14 - Social History Does the pt smoke?: No Smoking Status: Never smoker Does the pt drink ETOH?: No Does the pt have substance abuse?: No - Immunizations Immunizations are current?: No Immunizations: No immun - POLST Patient has POLST: Yes PD ED PE NORMAL - Vitals Vital signs reviewed: Yes - General General: Alert and oriented X 3 - HEENT HEENT: Atraumatic - Cardiac Cardiac: RRR - Respiratory Respiratory: No respiratory distress - Derm Derm: Other (Across the front of the left lower leg is an area of the skin that has recently healed from the abrasion that she suffered previously. Surrounding this are several small scabbed areas that are erythematous consistent with a folliculitis. There is no erythema or warmth. She does have some edema.) - Extremities Extremities: No deformity Results - Vitals Vitals: Vital Signs - 24 hr 03/16/19 21:51 Temperature 36.5 C Heart Rate 91 Respiratory 18 Rate Blood Pressure 185/81 H O2 Saturation 98 Oxygen O2 Source Room air PD MEDICAL DECISION MAKING - ED course Complexity details: d/w patient ED course: There does not appear to be any current cellulitis. I think she has folliculitis from the "new skin" product that she put on there is a barrier so that she could get in the water. The mupirocin may be exacerbating this so I have asked her to stop using the mupirocin. Recommend Cetaphil lotion and continue this Keflex. Departure - Departure Disposition: 01 Home, Self Care Clinical Impression: Folliculitis Condition: Good Instructions: ED Folliculitis Follow-Up: Sabi Perez MD [Primary Care Provider] - Comments: Continue the oral antibiotic. Stop using the mupirocin ointment. I would recommend Cetaphil Lotion on the area. Follow-up with your primary care provider if not improving.
[2019-03-16 23:35] VITALS: BP 145/68
== END 2019-03-16 23:34 | disposition home or self-care (01) ==
LOC: ED 21:47
DX: L73.9 Follicular disorder, unspecified (principal); Z88.0 Allergy status to penicillin; I10 Essential (primary) hypertension; Z79.82 Long term (current) use of aspirin
CPT/HCPCS: 99282

== ENCOUNTER 2019-05-09 14:16 | Outpatient (CLI) | payer MEDICARE, MEDICAID | END 2019-05-09 14:17 | disposition critical access hospital (66) | LOC: EMS 14:16 | PROVIDERS: ATTEND Surgery | DX: R07.9 Chest pain, unspecified (principal) | CPT/HCPCS: A0425; A0427 ==

== ENCOUNTER 2019-05-09 14:30 | Emergency (ER) | payer MEDICARE, MEDICAID ==
[2019-05-09 14:57] LABS: BASOPHILS # (AUTO) 0.1 10^3/uL (0.0-0.1); BASOPHILS % (AUTO) 1.2 %; EOSINOPHILS # (AUTO) 0.3 10^3/uL (0.0-0.7); EOSINOPHILS % (AUTO) 3.5 %; HGB - HEMOGLOBIN 12.8 g/dL (12.0-16.0); LYMPHOCYTES # (AUTO) 1.6 10^3/uL (1.5-3.5); LYMPHOCYTES % (AUTO) 21.4 %; MEAN CORPUSCULAR HGB CONC 33.7 g/dL (32.0-36.0); MEAN PLATELET VOLUME 9.3 fL (7.9-10.8); MONOCYTES # (AUTO) 0.7 10^3/uL (0.0-1.0); MONOCYTES % (AUTO) 9.1 %; NEUTROPHILS # (AUTO) 4.9 10^3/uL (1.5-6.6); NEUTROPHILS % (AUTO) 64.1 %; PLT - PLATELET COUNT 202 10^3/uL (130-450); RED BLOOD COUNT 4.27 10^6/uL (4.20-5.40); WHITE BLOOD COUNT 7.6 x10^3/uL (4.8-10.8)
[2019-05-09 15:09] LABS: ALBUMIN 4.4 g/dL (3.2-5.5); ALBUMIN/GLOBULIN RATIO 1.5 (1.0-2.2); BILIRUBIN,TOTAL 0.5 mg/dL (0.2-1.0); CALCIUM 9.3 mg/dL (8.5-10.3); CREATININE 0.6 mg/dL (0.4-1.0); TOTAL PROTEIN 7.3 g/dL (6.7-8.2)
--- NOTE | 2019-05-09 15:12 | XRAY Report ---
Reason: chest pain Procedure Date: 05/09/2019 Accession Number: [id number] / [id number] Procedure: XR - Chest 1 View X-Ray CPT Code: 15850 FULL RESULT: EXAM: CHEST RADIOGRAPHY EXAM DATE: 05/09/2019 02:58 PM. CLINICAL HISTORY: Chest pain. COMPARISON: CHEST 2 VIEW 12/13/2018 8:02 AM. TECHNIQUE: 1 view. FINDINGS: Lungs/Pleura: Mild interstitial prominence could reflect vascular congestion or possibly early interstitial pulmonary edema. No focal airspace consolidation. No pneumothorax. Mediastinum: Stable heart size and mediastinum. Other: None. IMPRESSION: 1. Mild interstitial pulmonary prominence could reflect vascular congestion or possibly early pulmonary edema. RADIA
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
[2019-05-09] MEDS ORDERED: IOVERSOL 320 100 ML VIAL IVP ONE ×2 (15:40→16:33)
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
[2019-05-09 17:22] VITALS: BP 163/74
== END 2019-05-09 17:26 | disposition home or self-care (01) ==
LOC: EDUNIT# → ED 14:30
DX: R07.89 Other chest pain (principal); I10 Essential (primary) hypertension
CPT/HCPCS: 36415; 71045; 71275; 80053; 83690; 83880; 84484; 85025; 93005; 99284; Q9967

== ENCOUNTER 2019-11-04 20:46 | Outpatient (CLI) | payer OTHER, MEDICARE, MEDICAID | END 2019-11-04 20:47 | disposition critical access hospital (66) | LOC: EMS 20:46 | PROVIDERS: ATTEND Surgery | DX: S99.912A Unspecified injury of left ankle, initial encounter (principal); R07.89 Other chest pain; R07.81 Pleurodynia; V49.40XA Driver injured in collision with unspecified motor vehicles in traffic accident, initial encounter; Y92.413 State road as the place of occurrence of the external cause | CPT/HCPCS: A0425; A0429 ==

== ENCOUNTER 2019-11-04 21:01 | Emergency (ER) | payer OTHER, MEDICARE, MEDICAID ==
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
[2019-11-04] MEDS ORDERED: IOVERSOL 320 100 ML VIAL IVP ONE ×2 (21:50→22:35)
[2019-11-04 21:52] LABS: BASOPHILS # (AUTO) 0.1 10^3/uL (0.0-0.1); BASOPHILS % (AUTO) 0.6 %; EOSINOPHILS # (AUTO) 0.1 10^3/uL (0.0-0.7); EOSINOPHILS % (AUTO) 0.6 %; HGB - HEMOGLOBIN 12.9 g/dL (12.0-16.0); LYMPHOCYTES # (AUTO) 1.7 10^3/uL (1.5-3.5); LYMPHOCYTES % (AUTO) 8.8 %; MEAN CORPUSCULAR HEMOGLOBIN 29.5 pg (27.0-31.0); MEAN CORPUSCULAR HGB CONC 32.9 g/dL (32.0-36.0); MEAN CORPUSCULAR VOLUME 89.7 fL (81.0-99.0); MEAN PLATELET VOLUME 9.4 fL (7.9-10.8); MONOCYTES # (AUTO) 0.9 10^3/uL (0.0-1.0); MONOCYTES % (AUTO) 4.9 %; NEUTROPHILS # (AUTO) 15.7 10^3/uL (1.5-6.6); NEUTROPHILS % (AUTO) 83.6 %; PLT - PLATELET COUNT 197 10^3/uL (130-450); RED BLOOD COUNT 4.37 10^6/uL (4.20-5.40); RED CELL DISTRIBUTION WIDTH 12.6 % (12.0-15.0); WHITE BLOOD COUNT 18.8 x10^3/uL (4.8-10.8)
[2019-11-04 21:57] LABS: INR 1.1 (0.8-1.2); PT - PROTHROMBIN TIME 12.4 secs (9.9-12.6)
[2019-11-04 22:05] LABS: ALBUMIN 4.1 g/dL (3.2-5.5); ALBUMIN/GLOBULIN RATIO 1.6 (1.0-2.2); BILIRUBIN,TOTAL 0.7 mg/dL (0.2-1.0); CALCIUM 8.9 mg/dL (8.5-10.3); CREATININE 0.8 mg/dL (0.4-1.0); PARTIAL THROMBOPLASTIN TIME 26.5 secs (24.9-33.3); TOTAL PROTEIN 6.6 g/dL (6.7-8.2)
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
[2019-11-04] MEDS ORDERED: HYDROmorphone 1 MG/ML SYRINGE IVP STA (23:40)
[2019-11-04] MEDS ORDERED: HYDROmorphone 1 MG/ML CARPUJECT ONE (23:42)
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
[2019-11-05] MEDS ORDERED: ONDANSETRON 4 MG/2 ML VIAL IVP STA (00:11)
[2019-11-05 00:48] LABS: BILIRUBIN,URINE NEGATIVE (NEGATIVE); GLUCOSE, URINE (UA) NEGATIVE (NEGATIVE); KETONES,URINE (UA) NEGATIVE (NEGATIVE); LEUKOCYTE ESTERASE, URINE NEGATIVE (NEGATIVE); NITRITE,URINE NEGATIVE (NEGATIVE); OCCULT BLOOD,URINE LARGE (NEGATIVE); PH,URINE 5.5 PH (5.0-7.5); PROTEIN,URINE 30 mg/dL (NEGATIVE); UROBILINOGEN,URINE 0.2 (NORMAL) E.U./dL (NORMAL)
[2019-11-05 00:49] LABS: CLARITY,URINE SL. CLOUDY (CLEAR)
[2019-11-05 00:58] LABS: BACTERIA,URINE Rare /HPF (None Seen); RBC,URINE TNTC /HPF (0-5); SQUAMOUS EPITHELIAL CELL,UR RARE Squamous (<= Few); YEAST,URINE PRESENT
[2019-11-05 01:45] VITALS: BP 161/80
[2019-11-05] MEDS ORDERED: HYDROmorphone 1 MG/ML SYRINGE IVP STA (02:07)
== END 2019-11-05 02:20 | disposition short-term general hospital (02) ==
LOC: EDUNIT# → ED 21:01
DX: S22.22XA Fracture of body of sternum, initial encounter for closed fracture (principal); S82.62XA Displaced fracture of lateral malleolus of left fibula, initial encounter for closed fracture; S82.52XA Displaced fracture of medial malleolus of left tibia, initial encounter for closed fracture; S82.832A Other fracture of upper and lower end of left fibula, initial encounter for closed fracture; S92.312A Displaced fracture of first metatarsal bone, left foot, initial encounter for closed fracture; S92.322A Displaced fracture of second metatarsal bone, left foot, initial encounter for closed fracture; S92.332A Displaced fracture of third metatarsal bone, left foot, initial encounter for closed fracture; S92.342A Displaced fracture of fourth metatarsal bone, left foot, initial encounter for closed fracture; S92.352A Displaced fracture of fifth metatarsal bone, left foot, initial encounter for closed fracture; S92.412A Displaced fracture of proximal phalanx of left great toe, initial encounter for closed fracture; V89.2XXA Person injured in unspecified motor-vehicle accident, traffic, initial encounter; I10 Essential (primary) hypertension
CPT/HCPCS: 36415; 70450; 71260; 72125; 73130; 73560; 73590; 73600; 73620; 74177; 80053; 81001; 83690; 85025; 85610; 85730; 96374; 96375; 96376; 99284; 99285; J1170; Q9967; 81003; 87086

== ENCOUNTER 2019-11-05 02:21 | Outpatient (CLI) | payer OTHER, MEDICARE, MEDICAID | END 2019-11-05 02:22 | disposition short-term general hospital (02) | LOC: EMS 02:21 | PROVIDERS: ATTEND Surgery | DX: S82.92XA Unspecified fracture of left lower leg, initial encounter for closed fracture (principal); S22.20XA Unspecified fracture of sternum, initial encounter for closed fracture; V49.40XA Driver injured in collision with unspecified motor vehicles in traffic accident, initial encounter; V49.60XA Unspecified car occupant injured in collision with unspecified motor vehicles in traffic accident, initial encounter | CPT/HCPCS: A0425; A0426 ==

== ENCOUNTER → 2020-04-19 | Outpatient (CLI) | payer MEDICARE, MEDICAID ==
--- NOTE | 2020-04-20 08:57 | XRAY Report ---
PROCEDURE: Ankle 3 View LT INDICATIONS: LEFT ANKLE FRACTURE TECHNIQUE: 3 views of the ankle were acquired. COMPARISON: Foot x-ray 04/19/2020 FINDINGS: Bones: Post surgical fusion within the distal fibula as well as medial malleolus is present. Hardware is intact without evidence of hardware fracture or periprosthetic lucency. First and second tarsomet atarsal fusion is also present. Overall, there is relatively good anatomic alignment. Osteopenia is p resent. Ankle mortise is normally aligned. No suspicious bony lesions. Soft tissues: No tibiotalar joint effusion. Achilles tendon appears normal. IMPRESSION: Postoperative fusion as above. Reviewed by: Olinda Valerio MD on 04/19/2020 4:42 PM PDT Approved by: Olinda Valerio MD on 04/19/2020 4:42 PM PDT Station ID: [id number]
--- NOTE | 2020-04-20 08:57 | XRAY Report ---
PROCEDURE: Foot 3 View LT INDICATIONS: LEFT FOOT FRACTURE TECHNIQUE: 3 views of the foot were acquired. COMPARISON: Ankle x-ray 04/19/2020 FINDINGS: Bones: First and second metatarsal tarsal fixation is present. Hardware is intact without evidence of hardware fracture or periprosthetic lucency. Diffuse osteopenia is present. There is an appearance o f subacute fracture of the mid fourth metatarsal as well as late subacute/partially healed distal sec ond and third metatarsal head fractures. Area of osseous fracture lucency appears to be partially vis ualized within the first metatarsal, although not well characterized. Soft tissues: No tibiotalar joint effusion. Achilles tendon appears normal. IMPRESSION: First and second digit fusion as well as first through fourth digit tarsal fractures as above. Reviewed by: Olinda Valerio MD on 04/19/2020 4:41 PM PDT Approved by: Olinda Valerio MD on 04/19/2020 4:41 PM PDT Station ID: [id number]
== END ==
LOC: DI.WCP 07:30
PROVIDERS: ATTEND Physician Assistant
DX: S82.402D Unspecified fracture of shaft of left fibula, subsequent encounter for closed fracture with routine healing (principal); S92.312D Displaced fracture of first metatarsal bone, left foot, subsequent encounter for fracture with routine healing; S92.322D Displaced fracture of second metatarsal bone, left foot, subsequent encounter for fracture with routine healing; S92.332D Displaced fracture of third metatarsal bone, left foot, subsequent encounter for fracture with routine healing; S92.342A Displaced fracture of fourth metatarsal bone, left foot, initial encounter for closed fracture

== ENCOUNTER 2020-04-27 15:41 | Outpatient (CLI) | payer MEDICARE, MEDICAID ==
[2020-04-27 16:06] LABS: CALCIUM 8.8 mg/dL (8.5-10.3); CREATININE 0.6 mg/dL (0.4-1.0)
== END 2020-04-27 15:42 | disposition home or self-care (01) ==
LOC: LAB 15:41
PROVIDERS: ATTEND Internal Medicine Interventional Cardiology
DX: I25.10 Atherosclerotic heart disease of native coronary artery without angina pectoris (principal)
CPT/HCPCS: 36415; 80048

== ENCOUNTER 2020-05-21 12:20 | Outpatient (CLI) | payer MEDICARE, MEDICAID ==
[2020-05-21 12:53] LABS: CHOL/HDL RATIO 2.4 (<4.4); CHOLESTEROL 171 mg/dL; HDL CHOLESTEROL 70 mg/dL; LDL CHOLESTEROL,CALCULATED 78 mg/dL; LDL/HDL RATIO 1.1 (<4.4); VLDL CHOLESTEROL 23 mg/dL
== END 2020-05-21 12:21 | disposition home or self-care (01) ==
LOC: LAB 12:20
PROVIDERS: ATTEND Internal Medicine Interventional Cardiology
DX: I25.10 Atherosclerotic heart disease of native coronary artery without angina pectoris (principal); E78.5 Hyperlipidemia, unspecified
CPT/HCPCS: 36415; 80061; 83721

== ENCOUNTER 2020-06-01 10:28 | Outpatient (CLI) | payer MEDICARE, MEDICAID ==
--- NOTE | 2020-06-01 11:30 | XRAY Report ---
PROCEDURE: Knee 3 View BILAT INDICATIONS: ARTHRITIS KNEES,BIALTERAL TECHNIQUE: 3 views of the left and right knee(s) were acquired. COMPARISON: None. FINDINGS: Bones: No fractures or dislocations. No suspicious bony lesions. Diffuse osteopenia. Mild narrowing of both medial joint spaces. Soft tissues: No joint effusion. Scattered vascular calcifications. No suspicious soft tissue calci fications. IMPRESSION: Mild bilateral knee joint degeneration Reviewed by: Jamarcus Lisa MD on 06/01/2020 11:28 AM PDT Approved by: Jamarcus Lisa MD on 06/01/2020 11:28 AM PDT Station ID: [id number]
== END 2020-06-01 10:29 | disposition home or self-care (01) ==
LOC: DI 10:28
PROVIDERS: ATTEND Physician Assistant
DX: M17.0 Bilateral primary osteoarthritis of knee (principal)

== ENCOUNTER 2020-10-27 10:04 | Outpatient (CLI) | payer MEDICARE, MEDICAID | END 2020-10-27 10:05 | disposition critical access hospital (66) | LOC: EMS 10:04 | PROVIDERS: ATTEND Emergency Medicine | DX: R03.0 Elevated blood-pressure reading, without diagnosis of hypertension (principal); R51.9 Headache, unspecified; R25.1 Tremor, unspecified | CPT/HCPCS: A0425; A0429 ==

== ENCOUNTER 2020-10-27 10:15 | Emergency (ER) | payer MEDICARE, MEDICAID ==
[2020-10-27] MEDS ORDERED: amLODIPine 5 MG TABLET PO STA (10:33)
[2020-10-27] MEDS ORDERED: carvediloL 12.5 MG TABLET PO STA (10:33)
[2020-10-27] MEDS ORDERED: LOSARTAN 50 MG TABLET PO STA (10:34)
[2020-10-27] MEDS ORDERED: APIXABAN 5 MG TABLET PO STA (10:34)
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
[2020-10-27 10:39] LABS: BASOPHILS # (AUTO) 0.1 10^3/uL (0.0-0.1); EOSINOPHILS # (AUTO) 0.1 10^3/uL (0.0-0.7); EOSINOPHILS % (AUTO) 1.1 %; HGB - HEMOGLOBIN 14.1 g/dL (12.0-16.0); LYMPHOCYTES # (AUTO) 1.3 10^3/uL (1.5-3.5); LYMPHOCYTES % (AUTO) 13.8 %; MEAN CORPUSCULAR HEMOGLOBIN 30.6 pg (27.0-31.0); MEAN CORPUSCULAR HGB CONC 33.3 g/dL (32.0-36.0); MEAN CORPUSCULAR VOLUME 91.8 fL (81.0-99.0); MEAN PLATELET VOLUME 8.8 fL (7.9-10.8); MONOCYTES # (AUTO) 0.7 10^3/uL (0.0-1.0); MONOCYTES % (AUTO) 7.5 %; NEUTROPHILS % (AUTO) 76.1 %; PLT - PLATELET COUNT 201 10^3/uL (130-450); RED BLOOD COUNT 4.61 10^6/uL (4.20-5.40); WHITE BLOOD COUNT 9.2 x10^3/uL (4.8-10.8)
[2020-10-27 10:59] LABS: ALBUMIN 4.5 g/dL (3.2-5.5); ALBUMIN/GLOBULIN RATIO 1.6 (1.0-2.2); BILIRUBIN,TOTAL 0.8 mg/dL (0.2-1.0); CALCIUM 9.3 mg/dL (8.5-10.3); CREATININE 0.6 mg/dL (0.4-1.0); TOTAL PROTEIN 7.4 g/dL (6.7-8.2)
[2020-10-27 12:18] VITALS: BP 150/76
== END 2020-10-27 12:18 | disposition home or self-care (01) ==
LOC: EDUNIT# → ED 10:15
DX: I11.0 Hypertensive heart disease with heart failure (principal); E86.0 Dehydration; I50.9 Heart failure, unspecified; Z95.5 Presence of coronary angioplasty implant and graft
CPT/HCPCS: 36415; 80053; 83690; 84484; 85025; 99283; 99284; A9270

== ENCOUNTER 2021-01-22 09:18 | Outpatient (CLI) | payer MEDICARE, MEDICAID ==
[2021-01-22 09:38] LABS: BASOPHILS # (AUTO) 0.1 10^3/uL (0.0-0.1); BASOPHILS % (AUTO) 1.3 %; EOSINOPHILS # (AUTO) 0.1 10^3/uL (0.0-0.7); EOSINOPHILS % (AUTO) 2.4 %; HCT - HEMATOCRIT 39.2 % (37.0-47.0); HGB - HEMOGLOBIN 13.3 g/dL (12.0-16.0); LYMPHOCYTES # (AUTO) 1.3 10^3/uL (1.5-3.5); LYMPHOCYTES % (AUTO) 24.9 %; MEAN CORPUSCULAR HEMOGLOBIN 30.9 pg (27.0-31.0); MEAN CORPUSCULAR HGB CONC 33.9 g/dL (32.0-36.0); MEAN CORPUSCULAR VOLUME 91.2 fL (81.0-99.0); MEAN PLATELET VOLUME 8.9 fL (7.9-10.8); MONOCYTES # (AUTO) 0.6 10^3/uL (0.0-1.0); MONOCYTES % (AUTO) 10.4 %; NEUTROPHILS # (AUTO) 3.2 10^3/uL (1.5-6.6); NEUTROPHILS % (AUTO) 60.8 %; PLT - PLATELET COUNT 211 10^3/uL (130-450); RED CELL DISTRIBUTION WIDTH 12.1 % (12.0-15.0); WHITE BLOOD COUNT 5.3 x10^3/uL (4.8-10.8)
[2021-01-22 10:09] LABS: THYROID STIMULATING HORMONE 2.56 uIU/mL (0.34-5.60)
[2021-01-22 10:10] LABS: ALBUMIN 4.3 g/dL (3.2-5.5); ALBUMIN/GLOBULIN RATIO 1.5 (1.0-2.2); ALKALINE PHOSPHATASE 63 IU/L (42-121); ALT ALANINE AMINOTRANSFERASE 22 IU/L (10-60); AST ASPARTATE AMINOTRANSFERASE 24 IU/L (10-42); BUN - BLOOD UREA NITROGEN 13 mg/dL (6-20); CALCIUM 9.1 mg/dL (8.5-10.3); CARBON DIOXIDE - CO2 27 mmol/L (21-32); CHLORIDE 102 mmol/L (101-111); CHOL/HDL RATIO 3.2 (<4.4); CHOLESTEROL 167 mg/dL; CREATININE 0.8 mg/dL (0.4-1.0); GFR - MDRD 68 (>89); GLUCOSE 138 mg/dL (70-100); HDL CHOLESTEROL 53 mg/dL; LDL CHOLESTEROL,CALCULATED 95 mg/dL; LDL/HDL RATIO 1.8 (<4.4); POTASSIUM 3.9 mmol/L (3.5-5.0); SODIUM 139 mmol/L (135-145); TOTAL PROTEIN 7.1 g/dL (6.7-8.2); TRIGLYCERIDES 97 mg/dL; VLDL CHOLESTEROL 19 mg/dL
== END 2021-01-22 09:19 | disposition home or self-care (01) ==
LOC: LAB 09:18
PROVIDERS: ATTEND Family Medicine
DX: I27.20 Pulmonary hypertension, unspecified (principal); I25.10 Atherosclerotic heart disease of native coronary artery without angina pectoris; I10 Essential (primary) hypertension
CPT/HCPCS: 36415; 80053; 80061; 83721; 84443; 85025

== ENCOUNTER 2021-06-27 11:00 | Outpatient (CLI) | payer MEDICARE, MEDICAID ==
--- NOTE | 2021-06-28 08:37 | XRAY Report ---
PROCEDURE: Hips 2V BILAT INDICATIONS: HIP PAIN TECHNIQUE: AP pelvis and crosstable lateral view of each hip were acquired. COMPARISON: None. FINDINGS: Bones: No acute fractures or dislocations. No suspicious bony lesions. The visualized pelvic ring appears intact. Mild degenerative changes in the hips bilaterally. Changes also noted in the include d lower lumbar spine. Soft tissues: Hyperdense material is seen projecting over the lumbosacral junction on the right, whic h correspond to peritoneal calcifications on the prior CT from 10/27/2019. IMPRESSION: Mild symmetric degenerative changes in the hips bilaterally. Reviewed by: Chapito Dukes MD on 06/28/2021 8:36 AM PDT Approved by: Chapito Dukes MD on 06/28/2021 8:36 AM PDT Station ID: [id number]
--- NOTE | 2021-06-28 08:54 | XRAY Report ---
PROCEDURE: Knee 4 View BILAT INDICATIONS: BILATERAL KNEES ARTHRITIS TECHNIQUE: 4 views of each knee were acquired. COMPARISON: Knee radiographs 06/01/2020 FINDINGS: Bones: No acute fractures or dislocations. No suspicious bony lesions. There is moderate narrowing of the right medial femorotibial compartment joint space. Mild narrowing of the left medial compartm ent joint space is also seen. There is mild to moderate narrowing of the lateral patellofemoral joint spaces bilaterally. Soft tissues: No joint effusion. No suspicious soft tissue calcifications. IMPRESSION: Mild to moderate bilateral osteoarthrosis, most prominent at the right medial femorotibi al compartment. Findings have not significantly changed when compared to the radiographs from 06/01/20. Reviewed by: Chapito Dukes MD on 06/28/2021 8:52 AM PDT Approved by: Chapito Dukes MD on 06/28/2021 8:52 AM PDT Station ID: [id number]
--- NOTE | 2021-06-28 09:03 | XRAY Report ---
PROCEDURE: Toe(s) LT INDICATIONS: UNSPECIFIED FX OF LEFT GREAT TOE TECHNIQUE: AP and lateral views of the forefoot. COMPARISON: Left foot radiographs 04/19/2020 FINDINGS: Bones: Postsurgical changes are redemonstrated from first and second tarsometatarsal joint effusion. There is severe generalized osteopenia. Chronic healed fractures of the third and fourth metatarsals and likely the first proximal phalanx are seen. Postsurgical or posttraumatic changes are noted at th e second and third metatarsal heads. Degenerative changes are seen at the lateral tarsometatarsal shira nts and within the interphalangeal joints of the toes. Postsurgical changes are partially imaged in t he ankle. Soft tissues: No suspicious soft tissue densities. IMPRESSION: 1.Subacute to chronic fracture of the first proximal phalanx is noted as well as prior fractures of t he third and fourth metatarsals and second metatarsal head. Evaluation for a superimposed acute injur y is limited by severe diffuse osteopenia. 2.Stable postsurgical changes and alignment involving the first and second metatarsal joint. Reviewed by: Chapito Dukes MD on 06/28/2021 9:01 AM PDT Approved by: Chapito Dukes MD on 06/28/2021 9:01 AM PDT Station ID: [id number]
== END 2021-06-27 11:01 | disposition home or self-care (01) ==
LOC: DI.N 11:00
PROVIDERS: ATTEND Physician Assistant
DX: M16.0 Bilateral primary osteoarthritis of hip (principal); M17.0 Bilateral primary osteoarthritis of knee; S92.412D Displaced fracture of proximal phalanx of left great toe, subsequent encounter for fracture with routine healing; S92.502D Displaced unspecified fracture of left lesser toe(s), subsequent encounter for fracture with routine healing; M85.872 Other specified disorders of bone density and structure, left ankle and foot
CPT/HCPCS: 73660

== ENCOUNTER 2021-08-02 09:22 | Outpatient (CLI) | payer MEDICARE, MEDICAID ==
[2021-08-02 09:54] LABS: BUN - BLOOD UREA NITROGEN 24 mg/dL (6-20); CALCIUM 9.4 mg/dL (8.5-10.3); CARBON DIOXIDE - CO2 27 mmol/L (21-32); CHLORIDE 98 mmol/L (101-111); CHOLESTEROL 182 mg/dL; CREATININE 0.8 mg/dL (0.4-1.0); GFR - MDRD 68 (>89); GLUCOSE 164 mg/dL (70-100); HDL CHOLESTEROL 62 mg/dL; LDL CHOLESTEROL,CALCULATED 92 mg/dL; LDL/HDL RATIO 1.5 (<4.4); POTASSIUM 3.9 mmol/L (3.5-5.0); SODIUM 136 mmol/L (135-145); TRIGLYCERIDES 139 mg/dL; VLDL CHOLESTEROL 28 mg/dL
[2021-08-02 09:55] LABS: CHOL/HDL RATIO 2.9 (<4.4)
== END 2021-08-02 09:23 | disposition home or self-care (01) ==
LOC: LAB 09:22
PROVIDERS: ATTEND Internal Medicine Interventional Cardiology
DX: E78.5 Hyperlipidemia, unspecified (principal); Z95.5 Presence of coronary angioplasty implant and graft; I10 Essential (primary) hypertension; I25.118 Atherosclerotic heart disease of native coronary artery with other forms of angina pectoris
CPT/HCPCS: 36415; 80048; 80061; 83721

== ENCOUNTER 2022-02-24 19:38 | Outpatient (CLI) | payer MEDICARE, MEDICAID | END 2022-02-24 19:39 | disposition EMS.NT | LOC: EMS 19:38 | DX: R11.2 Nausea with vomiting, unspecified (principal) ==

== ENCOUNTER 2022-03-20 12:54 | Outpatient (CLI) | payer MEDICARE, MEDICAID ==
[2022-03-20 13:10] LABS: BASOPHILS # (AUTO) 0.1 10^3/uL (0.0-0.1); BASOPHILS % (AUTO) 1.6 %; EOSINOPHILS # (AUTO) 0.1 10^3/uL (0.0-0.7); EOSINOPHILS % (AUTO) 1.8 %; HCT - HEMATOCRIT 39.7 % (37.0-47.0); HGB - HEMOGLOBIN 13.7 g/dL (12.0-16.0); LYMPHOCYTES # (AUTO) 1.3 10^3/uL (1.5-3.5); LYMPHOCYTES % (AUTO) 19.7 %; MEAN CORPUSCULAR HEMOGLOBIN 31.3 pg (27.0-31.0); MEAN CORPUSCULAR HGB CONC 34.5 g/dL (32.0-36.0); MEAN CORPUSCULAR VOLUME 90.6 fL (81.0-99.0); MEAN PLATELET VOLUME 8.9 fL (7.9-10.8); MONOCYTES # (AUTO) 0.6 10^3/uL (0.0-1.0); MONOCYTES % (AUTO) 9.1 %; NEUTROPHILS # (AUTO) 4.6 10^3/uL (1.5-6.6); NEUTROPHILS % (AUTO) 67.4 %; PLT - PLATELET COUNT 197 10^3/uL (130-450); RED BLOOD COUNT 4.38 10^6/uL (4.20-5.40); RED CELL DISTRIBUTION WIDTH 11.9 % (12.0-15.0); WHITE BLOOD COUNT 6.8 x10^3/uL (4.8-10.8)
[2022-03-20 13:32] LABS: ALBUMIN 4.4 g/dL (3.2-5.5); ALBUMIN/GLOBULIN RATIO 1.5 (1.0-2.2); ALKALINE PHOSPHATASE 57 IU/L (42-121); ALT ALANINE AMINOTRANSFERASE 25 IU/L (10-60); AST ASPARTATE AMINOTRANSFERASE 24 IU/L (10-42); BUN - BLOOD UREA NITROGEN 16 mg/dL (6-20); CALCIUM 9.6 mg/dL (8.5-10.3); CARBON DIOXIDE - CO2 28 mmol/L (21-32); CHLORIDE 99 mmol/L (101-111); CHOL/HDL RATIO 2.7 (<4.4); CHOLESTEROL 178 mg/dL; CREATININE 0.7 mg/dL (0.4-1.0); GFR - MDRD 79 (>89); GLUCOSE 191 mg/dL (70-100); HDL CHOLESTEROL 65 mg/dL; LDL CHOLESTEROL,CALCULATED 87 mg/dL; LDL/HDL RATIO 1.3 (<4.4); POTASSIUM 3.8 mmol/L (3.5-5.0); SODIUM 139 mmol/L (135-145); TOTAL PROTEIN 7.3 g/dL (6.7-8.2); TRIGLYCERIDES 131 mg/dL; VLDL CHOLESTEROL 26 mg/dL
[2022-03-20 13:36] LABS: THYROID STIMULATING HORMONE 2.4 uIU/mL (0.34-5.60)
[2022-03-20 14:38] LABS: ESTIMATED AVERAGE GLUCOSE 154 mg/dL (70-100)
== END 2022-03-20 12:55 | disposition home or self-care (01) ==
LOC: LAB 12:54
PROVIDERS: ATTEND Family Medicine
DX: I10 Essential (primary) hypertension (principal); K21.9 Gastro-esophageal reflux disease without esophagitis; R73.9 Hyperglycemia, unspecified; I48.91 Unspecified atrial fibrillation; I27.20 Pulmonary hypertension, unspecified; I25.10 Atherosclerotic heart disease of native coronary artery without angina pectoris
CPT/HCPCS: 36415; 80053; 80061; 83036; 83721; 84443; 85025

== ENCOUNTER 2022-03-24 08:40 | Emergency (ER) | payer MEDICARE, MEDICAID ==
[2022-03-24 09:10] LABS: INR 1.5 (0.8-1.2); PT - PROTHROMBIN TIME 16.4 secs (9.9-12.6)
[2022-03-24 09:12] LABS: BASOPHILS # (AUTO) 0.1 10^3/uL (0.0-0.1); BASOPHILS % (AUTO) 1.1 %; EOSINOPHILS # (AUTO) 0.1 10^3/uL (0.0-0.7); EOSINOPHILS % (AUTO) 1.1 %; HCT - HEMATOCRIT 40.1 % (37.0-47.0); HGB - HEMOGLOBIN 13.8 g/dL (12.0-16.0); LYMPHOCYTES # (AUTO) 1.4 10^3/uL (1.5-3.5); LYMPHOCYTES % (AUTO) 12.9 %; MEAN CORPUSCULAR HEMOGLOBIN 31.1 pg (27.0-31.0); MEAN CORPUSCULAR HGB CONC 34.4 g/dL (32.0-36.0); MEAN CORPUSCULAR VOLUME 90.3 fL (81.0-99.0); MONOCYTES # (AUTO) 0.9 10^3/uL (0.0-1.0); MONOCYTES % (AUTO) 8.2 %; NEUTROPHILS # (AUTO) 8.3 10^3/uL (1.5-6.6); NEUTROPHILS % (AUTO) 76.3 %; PLT - PLATELET COUNT 204 10^3/uL (130-450); RED BLOOD COUNT 4.44 10^6/uL (4.20-5.40); WHITE BLOOD COUNT 10.9 x10^3/uL (4.8-10.8)
[2022-03-24 09:17] LABS: PARTIAL THROMBOPLASTIN TIME 31.9 secs (24.9-33.3)
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
[2022-03-24 09:24] LABS: ALBUMIN 4.6 g/dL (3.2-5.5); ALBUMIN/GLOBULIN RATIO 1.6 (1.0-2.2); BILIRUBIN,TOTAL 0.9 mg/dL (0.2-1.0); CALCIUM 9.7 mg/dL (8.5-10.3); CREATININE 0.8 mg/dL (0.4-1.0); POTASSIUM 3.8 mmol/L (3.5-5.0); TOTAL PROTEIN 7.5 g/dL (6.7-8.2)
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
--- OUTSIDE RECORDS SUMMARY | 2022-03-24 09:24 | EXTERNAL MEDICAL SUMMARY RPT | Continuity of Care Document ---
:1935 Author Organization [facility] Address [address] [place] [address] Phone Allergies No information. Encounters No information. Functional Status No information. Immunizations No information. Medications No information. Problems No information. Procedures No information. Results/Labs test date author facility value unit interpret ation Result panel 1 (unknown) (no (unknown) (unknown) (no value) (units (unk nown) date) unknown) (unknown) (no (unknown) (unknown) [address] [place] [address] (units (unknown) date) unknown) (unknown) (no (unknown) (unknown) sev ratio: 0.23 (units (unknown) date) unknown) (unknown) (no (unknown) (unknown) [place], [place] (units ( unknown) date) [id number] unknown) (unknown) (no (unknown) (unknown) Echocardiogram (units (unknown) date) Report unknown) (unknown) (no (unknown) (unknown) Echocardiography (units (unknown) date) Report unknown) (unknown) (no (unknown) (unknown) Electronically (units (unknown) date) signed by: Nataly Al on (unknown) (no (unknown) (unknown) [place] (units (unkno wn) date) unknown) (unknown) (no (unknown) (unknown) [facility] (units (unknown) date) unknown) (unknown) (no (unknown) (unknown) Signed (units (unkno wn) date) unknown) (unknown) (no (unknown) (unknown) (no value) (units (unk nown) date) unknown) (unknown) (no (unknown) (unknown) +---------+ (units (un known) date) [phone] unknown) +---------+ (unknown) (no (unknown) (unknown) +---------+ (units (un known) date) Hospital unknown) +---------+ (unknown) (no (unknown) (unknown) + (units (unknown) date) unknown) ---+ (unknown) (no (unknown) (unknown) 03/03/22 (units (unkno wn) date) unknown) (unknown) (no (unknown) (unknown) : : 1211 (units (unknown) date) . : : unknown) (unknown) (no (unknown) (unknown) : : [address] (units (unknown) date) : : unknown) (unknown) (no (unknown) (unknown) : : (units (unkno wn) date) JAIMEE Apple : unknown) : (unknown) (no (unknown) (unknown) : : Phone: (units (unknown) date) [phone] : : unknown) (unknown) (no (unknown) (unknown) :Account #: (units (un known) date) [id number] unknown) Gender: Female BSA: 1.8 m2 : (unknown) (no (unknown) (unknown) :: 1935 (units (unknown) date) Age: 86 yrs BP: unknown) 149/101 mmHg: (unknown) (no (unknown) (unknown) :Hospital MRN #: (units (unknown) date) [id number] unknown) ReadingLocation: Weight: 170 lb : (unknown) (no (unknown) (unknown) :Name: ALEAH, (units (u nknown) date) TAMEKA Study unknown) Date: 03/03/2022 Height: 61 in : (unknown) (no (unknown) (unknown) :Ordering (units (unkn own) date) Physician: POLO, unknown) : (unknown) (no (unknown) (unknown) :ZORAN Dinero (units (unk nown) date) Performed By: unknown) Lraissa Herrmann : (unknown) (no (unknown) (unknown) :Reason For Study: (units (unknown) date) AORTIC VALVE unknown) DISORDERS : (unknown) (no (unknown) (unknown) :Referring: (units (un known) date) ZORAN CUELLAR unknown) : (unknown) (no (unknown) (unknown) Ao V2 VTI: 86.2 cm (units (unknown) date) JUAN C(V,D): 0.68 unknown) cm2 (unknown) (no (unknown) (unknown) Ao V2 max: 393.3 (units (unknown) date) cm/sec LVOT Max unknown) Otis: 85.2 cm/sec (unknown) (no (unknown) (unknown) Ao V2 mean: 295.5 (units (unknown) date) cm/sec LV V1 max unknown) P.9 mmHg (unknown) (no (unknown) (unknown) Ao max P.4 (units (unknown) date) mmHg LV V1 VTI: unknown) 20.0 cm (unknown) (no (unknown) (unknown) Ao mean P.7 (units (unknown) date) mmHg JUAN C(I,D): unknown) 0.73 cm2 (unknown) (no (unknown) (unknown) Aortic Valve: (units ( unknown) date) The aortic valve is unknown) severely calcified. There is moderate to (unknown) (no (unknown) (unknown) Atria: The left (units (unknown) date) atrium is severely unknown) dilated. Right atrial size is normal. (unknown) (no (unknown) (unknown) Comparison is made (units (unknown) date) with the unknown) echocardiogram of 08/20/2021, aortic stenosis has (unknown) (no (unknown) (unknown) Comparison is made (units (unknown) date) with the unknown) echocardiogram of 08/20/2021. The patient was in (unknown) (no (unknown) (unknown) Doppler (units (unkno wn) date) Measurements + unknown) Calculations (unknown) (no (unknown) (unknown) E/E' lat: 7.6 (units ( unknown) date) unknown) (unknown) (no (unknown) (unknown) E/E' med: 13.0 (units (unknown) date) PA mean P.5 unknown) mmHg (unknown) (no (unknown) (unknown) E/e' average: 10.3 (units (unknown) date) unknown) (unknown) (no (unknown) (unknown) FS: 36.4 % asc (units (unknown) date) Aorta Diam: 3.0 cm unknown) (unknown) (no (unknown) (unknown) Great Vessels: (units (unknown) date) The aortic root is unknown) normal size. The dimensions of the (unknown) (no (unknown) (unknown) IVSd: 1.2 cm (units (u nknown) date) unknown) (unknown) (no (unknown) (unknown) Interpretation (units (unknown) date) Summary unknown) (unknown) (no (unknown) (unknown) LA A2 area: 29.4 (units (unknown) date) cm2 RA long unknown) axis: 6.1 cm (unknown) (no (unknown) (unknown) LA A4 area: 31.9 (units (unknown) date) cm2 RA area: unknown) 19.0 cm2 (unknown) (no (unknown) (unknown) LA length (vol): (units (unknown) date) 7.2 cm RA vol: unknown) 50.3 ml (unknown) (no (unknown) (unknown) LA vol index: 62.9 (units (unknown) date) ml/m2 IVC diam: unknown) 1.7 cm (unknown) (no (unknown) (unknown) LA vol: 110.9 ml (units (unknown) date) RA : 28.5 ml/m2 unknown) (unknown) (no (unknown) (unknown) LVIDd: 4.5 cm (units ( unknown) date) LVOT diam: 2.0 cm unknown) (unknown) (no (unknown) (unknown) LVIDs: 2.9 cm (units ( unknown) date) Ao root diam: 2.8 unknown) cm (unknown) (no (unknown) (unknown) LVPWd: 0.85 cm (units (unknown) date) unknown) (unknown) (no (unknown) (unknown) Lat Peak E' Otis: (units (unknown) date) 14.1 cm/sec unknown) (unknown) (no (unknown) (unknown) Left Ventricle: (units (unknown) date) The left ventricle unknown) is normal in size. There is mild (unknown) (no (unknown) (unknown) MMode/2D (units (unkno wn) date) Measurements + unknown) Calculations (unknown) (no (unknown) (unknown) MV A max otis: 45.9 (units (unknown) date) cm/sec TR max unknown) P.1 mmHg (unknown) (no (unknown) (unknown) MV E max otis: (units ( unknown) date) 107.2 cm/sec unknown) TR max otis: 292.1 cm/sec (unknown) (no (unknown) (unknown) MV E/A: 2.3 PA (units (unknown) date) V2 max: 111.9 unknown) cm/sec (unknown) (no (unknown) (unknown) MV dec time: 0.16 (units (unknown) date) sec unknown) (unknown) (no (unknown) (unknown) Med Peak E' Otis: (units (unknown) date) 8.3 cm/sec PA unknown) V2 mean: 74.1 cm/sec (unknown) (no (unknown) (unknown) Mild concentric (units (unknown) date) left ventricular unknown) hypertrophy with ejection fraction 60-65%. (unknown) (no (unknown) (unknown) Mild mitral (units (un known) date) annular unknown) calcification. (unknown) (no (unknown) (unknown) Mild mitral (units (un known) date) regurgitation. unknown) (unknown) (no (unknown) (unknown) Mild tricuspid (units (unknown) date) regurgitation. unknown) (unknown) (no (unknown) (unknown) Mitral Valve: (units ( unknown) date) There is mild unknown) mitral annular calcification. The mitral valve (unknown) (no (unknown) (unknown) Pericardium/ (units (u nknown) date) Pleura There is unknown) no pericardial effusion. There is no pleural (unknown) (no (unknown) (unknown) Procedure: A (units (unknown) date) two-dimensional unknown) transthoracic echocardiogram with color flow (unknown) (no (unknown) (unknown) Pulmonic Valve: (units (unknown) date) The pulmonic valve unknown) is not well seen, but is grossly normal. (unknown) (no (unknown) (unknown) RVD1 (basal): 3.6 (units (unknown) date) cm unknown) (unknown) (no (unknown) (unknown) RVD2 (mid): 3.4 cm (units (unknown) date) unknown) (unknown) (no (unknown) (unknown) Reading (units (unkno wn) date) Physician: unknown) 2 10:58 AM (unknown) (no (unknown) (unknown) Right Ventricle: (units (unknown) date) The right ventricle unknown) is normal in size and function. (unknown) (no (unknown) (unknown) SV(LVOT): 62.9 ml (units (unknown) date) unknown) (unknown) (no (unknown) (unknown) Severe aortic (units ( unknown) date) stenosis. unknown) (unknown) (no (unknown) (unknown) Severely dilated (units (unknown) date) left atrium. unknown) (unknown) (no (unknown) (unknown) TAPSE: 2.0 cm (units ( unknown) date) unknown) (unknown) (no (unknown) (unknown) The calculated (units (unknown) date) aortic valve area unknown) is 0.68 cm2. (unknown) (no (unknown) (unknown) The peak aortic (units (unknown) date) velocity is 3.9 unknown) m/sec. (the previous exam was 3.6 m/sec.) (unknown) (no (unknown) (unknown) The right (units (unkn own) date) ventricular unknown) systolic pressure is estimated to be at least 37 mmHg (unknown) (no (unknown) (unknown) There is no (units (un known) date) Doppler evidence unknown) for an interatrial shunt. (unknown) (no (unknown) (unknown) There is no (units (un known) date) pulmonic valvular unknown) regurgitation. (unknown) (no (unknown) (unknown) Tricuspid Valve: (units (unknown) date) The tricuspid valve unknown) leaflets are thin and pliable. There is (unknown) (no (unknown) (unknown) (units (unknown) date) unknown) ___ (unknown) (no (unknown) (unknown) and Doppler was (units (unknown) date) performed. The unknown) study quality was technically adequate. (unknown) (no (unknown) (unknown) aortic valve area (units (unknown) date) is 0.68 cm2. There unknown) is trace aortic regurgitation. (unknown) (no (unknown) (unknown) aortic velocity is (units (unknown) date) 3.9 m/sec. The peak unknown) aortic velocity on the previous exam (unknown) (no (unknown) (unknown) ascending aorta (units (unknown) date) are normal. The IVC unknown) is of normal diameter and collapses (unknown) (no (unknown) (unknown) based on an (units (un known) date) estimated right unknown) atrial pressure of 3 mm Hg. (unknown) (no (unknown) (unknown) be 60-65%. There (units (unknown) date) are no focal wall unknown) motion abnormalities. (unknown) (no (unknown) (unknown) concentric left (units (unknown) date) ventricular unknown) hypertrophy. The ejection fraction is estimated to (unknown) (no (unknown) (unknown) effusion. (units (unkn own) date) unknown) (unknown) (no (unknown) (unknown) estimated to be at (units (unknown) date) least 37 mmHg based unknown) on an estimated right atrial pressure (unknown) (no (unknown) (unknown) greater than 50% (units (unknown) date) with a sniff. This unknown) suggests a low right atrial pressure of 3 (unknown) (no (unknown) (unknown) leaflets appear (units (unknown) date) mildly thickened, unknown) but open well. There is mild mitral (unknown) (no (unknown) (unknown) mild tricuspid (units (unknown) date) regurgitation. The unknown) right ventricular systolic pressure is (unknown) (no (unknown) (unknown) mm Hg. (units (unkno wn) date) unknown) (unknown) (no (unknown) (unknown) of 3 mm Hg. (units (un known) date) unknown) (unknown) (no (unknown) (unknown) progressed. (units (un known) date) unknown) (unknown) (no (unknown) (unknown) regurgitation. (units (unknown) date) unknown) (unknown) (no (unknown) (unknown) severely reduced (units (unknown) date) leaflet mobility. unknown) There is severe aortic stenosis. The peak (unknown) (no (unknown) (unknown) sinus bradycardia (units (unknown) date) with heart rates unknown) between 55-65 bpm during the exam. (unknown) (no (unknown) (unknown) was 3.6 m/sec. The (units (unknown) date) aortic valve mean unknown) gradient is 38 mmHg. The calculated (unknown) (no (unknown) (unknown) [id number] (units (unkno wn) date) unknown) (unknown) (no (unknown) (unknown) Accession Number: (units (unknown) date) [id number] unknown) (unknown) (no (unknown) (unknown) Age/Sex: 86 / F (units (unknown) date) Date of Service: unknown) (unknown) (no (unknown) (unknown) : 1935 (units (unknown) date) Acct:[id number] unknown) (unknown) (no (unknown) (unknown) GenericComposite[ (units (unknown) date) JUAN C indexed to unknown) BSA (cm^2/m^2): 0.41 ] (unknown) (no (unknown) (unknown) GenericComposite[ (units (unknown) date) LV mccormack. unknown) diameter/BSA (cm/m^2): 2.6 ] (unknown) (no (unknown) (unknown) GenericComposite[ (units (unknown) date) LV sys. unknown) diameter/BSA (cm/m^2): 1.6 ] (unknown) (no (unknown) (unknown) Loc: [facility] (units (unkn own) date) unknown) (unknown) (no (unknown) (unknown) Ordering Provider: (units (unknown) date) Zoran Cuellar MD unknown) (unknown) (no (unknown) (unknown) Patient: (units (unkno wn) date) Tameka Prater unknown) MR#: [id number] (unknown) (no (unknown) (unknown) Procedure: EC echo (units (unknown) date) doppler complete unknown) Social History No information. Vital Signs No information.
[2022-03-24] MEDS ORDERED: PROTHROMBIN COMPLEX CONC 500 UNIT VIAL IVP STA (09:25)
--- NOTE | 2022-03-24 09:25 | ED Physician Documentation ---
PD HPI HEAD INJURY - Stated complaint Stated Complaint: FALL/HEAD INJ - Chief complaint Chief Complaint: Trauma Hd/Nk - History obtained from History obtained from: Patient, Family - History of Present Illness Mechanism of head injury: Fell Timing - onset: Last night, Yesterday - Additional information Additional information: , 86-year-old female with history of coronary disease, nlv-xewdlit-qdhujkbki diabetes presents by private vehicle for a fall that occurred at some point last night. Patient does not remember the fall, however she states that she was able to crawl into bed after the event. This morning her friend came to check on her, because they normally go swimming together, and noticed bleeding from her right ear. She convince the patient to be seen in the ER. Patient takes Eliquis, she does not know why she is on Eliquis, she only states "I have a bad heart". Patient states she does not know if she is ever been diagnosed with A. fib or an abnormal heart rhythm. Patient states that she does not remember the event or why she fell. Patient is endorsing pain on the right side of her body. Took all of her medications this morning including her Eliquis. Review of Systems Unable to obtain: Confused Musculoskeletal: reports: Joint pain (R wrist, R hip) PD PAST MEDICAL HISTORY - Past Medical History Cardiovascular: Congestive heart failure, Hypertension, High cholesterol, Cor onary artery disease, [place], Murmur Respiratory: Pneumonia Neuro: None Endocrine/Autoimmune: None GI: None INSTRUCTIONAL CONSULTANT: None : None HEENT: Macular degeneration Psych: Anxiety, Other Musculoskeletal: Osteoarthritis, Chronic back pain Derm: Psoriasis - Past Surgical History Past Surgical History: Yes Ortho: Other /INSTRUCTIONAL CONSULTANT: Hysterectomy Cardiovascular: Coronary stent HEENT: Cataracts, Tonsil/Adenoidectomy Derm: Skin cancer surgery - Present Medications Home Medications: Ambulatory Orders Medication Instructions Recorded Confirmed Amlodipine Besylate 10 mg PO DAILY 12/15/14 02/18/19 Carvedilol 6.25 mg PO BID 12/15/14 02/18/19 Apixaban [Eliquis] 0 mg 10/27/20 Atorvastatin [Lipitor] 0 mg 10/27/20 Ezetimibe [Zetia] 10/27/20 10/27/20 Losartan [Cozaar] 10/27/20 10/27/20 Nitroglycerin [Nitrostat] 02/20/21 Omeprazole 10/27/20 - Allergies Allergies/Adverse Reactions: Allergies Allergy/AdvReac Type Severity Reaction Status Date / Time diphtheria toxoid,fluid Allergy Unknown Verified 03/24/22 08:54 metformin Allergy Unknown Verified 03/24/22 08:54 Penicillins Allergy Hives Verified 03/24/22 08:54 Vxvlehs-IRO-MzR Reductase Allergy Unknown Verified 03/24/22 08:54 Inhibitor [Qizechi-Tic-Cwa Reductase Inhibitor] metals AdvReac Unknown Uncoded 03/24/22 08:54 - Social History Does the pt smoke?: No Smoking Status: Never smoker Does the pt drink ETOH?: No Does the pt have substance abuse?: No - Immunizations Immunizations are current?: No Immunizations: No immun - POLST Patient has POLST: Yes PD ED PE NORMAL - General General: No acute distress, Other (AO x 2 (confused)) - HEENT HEENT: PERRL, EOMI, Other (Swelling R anterior ear, dried blood on R earlobe). No: Atraumatic, Ears normal - Neck Neck: Other (In C-collar) - Cardiac Cardiac: RRR, No gallop - Respiratory Respiratory: No respiratory distress, Clear bilaterally - Abdomen Abdomen: Soft, Non tender, Non distended - Back Back: No CVA TTP, No spinal TTP - Derm Derm: Normal color, Warm and dry, No rash - Extremities Extremities: No deformity, No edema, No calf tenderness / cord. No: No tenderness to palpate (R wrist TTP, R hip TTP) - Neuro Neuro: senior advisor 2-12 intact, No motor deficit, No sensory deficit, Normal speech, Other (Mildly confused, Able to stand and transfer with assistance) Motor: Obeys Commands Verbal: Confused Results - Vitals Vitals: Vital Signs - 24 hr 03/24/22 03/24/22 03/24/22 08:42 09:28 10:00 Temperature 37.2 C Heart Rate 89 86 82 Respiratory 19 18 14 Rate Blood Pressure 153/59 H 167/80 H 168/71 H O2 Saturation 99 96 95 03/24/22 03/24/22 10:30 11:00 Temperature Heart Rate 89 90 Respiratory 17 16 Rate Blood Pressure 123/77 108/70 O2 Saturation 98 97 Oxygen O2 Source Room air - EKG (time done) 0927 Rate: Rate (enter#) Rhythm: NSR [place]: Normal Intervals: Normal [place] QRS: Normal - Labs Labs: Laboratory Tests 03/24/22 03/24/22 03/24/22 08:58 08:58 08:58 WBC 10.9 H RBC 4.44 Hgb 13.8 Hct 40.1 MCV 90.3 MCH 31.1 H MCHC 34.4 RDW 12.0 Plt Count 204 MPV 9.0 Neut # (Auto) 8.3 H Lymph # (Auto) 1.4 L [place] # (Auto) 0.9 Eos # (Auto) 0.1 Baso # (Auto) 0.1 Absolute Nucleated RBC 0.00 Nucleated RBC % 0.0 PT INR APTT Sodium 139 Potassium 3.8 Chloride 101 Carbon Dioxide 25 Anion Gap 13.0 BUN 15 Creatinine 0.8 Estimated GFR (MDRD) 68 L Glucose 221 H Lactic Acid Calcium 9.7 Total Bilirubin 0.9 AST 25 ALT 25 Alkaline Phosphatase 62 Total Creatine Kinase 51 Troponin I High Sens 13.7 Total Protein 7.5 Albumin 4.6 Globulin 2.9 Albumin/Globulin Ratio 1.6 Lipase 42 SARS-CoV-2 (PCR) Blood Type Blood Type Recheck Antibody Screen 03/24/22 03/24/22 03/24/22 08:58 08:58 09:16 WBC RBC Hgb Hct MCV MCH MCHC RDW Plt Count MPV Neut # (Auto) Lymph # (Auto) [place] # (Auto) Eos # (Auto) Baso # (Auto) Absolute Nucleated RBC Nucleated RBC % PT 16.4 H INR 1.5 H APTT 31.9 Sodium Potassium Chloride Carbon Dioxide Anion Gap BUN Creatinine Estimated GFR (MDRD) Glucose Lactic Acid 2.3 H Calcium Total Bilirubin AST ALT Alkaline Phosphatase Total Creatine Kinase Troponin I High Sens Total Protein Albumin Globulin Albumin/Globulin Ratio Lipase SARS-CoV-2 (PCR) Blood Type A POSITIVE Blood Type Recheck Antibody Screen NEGATIVE 03/24/22 03/24/22 09:16 09:28 WBC RBC Hgb Hct MCV MCH MCHC RDW Plt Count MPV Neut # (Auto) Lymph # (Auto) [place] # (Auto) Eos # (Auto) Baso # (Auto) Absolute Nucleated RBC Nucleated RBC % PT INR APTT Sodium Potassium Chloride Carbon Dioxide Anion Gap BUN Creatinine Estimated GFR (MDRD) Glucose Lactic Acid Calcium Total Bilirubin AST ALT Alkaline Phosphatase Total Creatine Kinase Troponin I High Sens Total Protein Albumin Globulin Albumin/Globulin Ratio Lipase SARS-CoV-2 (PCR) NOT DETECTED Blood Type Blood Type Recheck A POSITIVE Antibody Screen PD MEDICAL DECISION MAKING - ED course ED course: . Patient arrived with obvious head trauma after a fall at some point earlier this evening. CT called to take patient expeditiously to scanner. Placed in c- collar. Preliminary review of CT showed subarachnoid hemorrhage. After reviewing preliminary CT call transfer center to arrange transport for higher level of care. Hemodynamically stable. Patient was on Eliquis, given Kcentra for reversal of anticoagulation given active head bleed in the setting of trauma. Accepted by [facility] by Dr. Avi John - Critical Care Time(min): 33 Comments: SUBARACHNOID HEMORRHAGE Time Includes: Direct patient care, Review records, Reassess patient, Document care, Coordinate care, Medical consult, Family consult for tx dec Data interpretation: Labs, Pulse ox, CXR, See progress note Procedures included in critical care time: See progress note Procedures excluded from critical care time: EKG Departure - Departure Disposition: 02 Transfer Acute Care Hosp Discharge Date/Time: 03/24/22 11:00
--- NOTE | 2022-03-24 09:25 | XRAY Report ---
PROCEDURE: Wrist 4 View RT INDICATIONS: GLF, PAIN, DEFORMITY TECHNIQUE: 4 views of the wrist were acquired. COMPARISON: None FINDINGS: Bones: No fractures or dislocations. No suspicious bony lesions. Degenerative radiocarpal as well as joint space narrowing between the carpal bones is present. Scaphoid view: No visualized scaphoid fracture. Soft tissues: No suspicious soft tissue calcifications. IMPRESSION: No visualized acute fracture or dislocation. However, occult injury cannot be excluded. Recommend sourav rt interval imaging follow-up in 7-10 days as clinically indicated for additional evaluation or CT if immediate concern is present. Reviewed by: Olinda Valerio MD on 03/24/2022 9:24 AM PDT Approved by: Olinda Valerio MD on 03/24/2022 9:24 AM PDT Station ID: [id number]
--- NOTE | 2022-03-24 09:31 | CT Report ---
PROCEDURE: CERVICAL SPINE WO INDICATIONS: GLF ON ELIQUIS TECHNIQUE: Noncontrast 3 mm thick sections acquired from the skull base to the T4 level. Sagittal and coronal r eformats were then constructed. For radiation dose reduction, the following was used: automated exp osure control, adjustment of mA and/or kV according to patient size. COMPARISON: None. FINDINGS: Image quality: Excellent. Bones: No acute fractures or dislocations. Straightening of cervical lordosis likely related to posi tioning and/or concurrent muscle spasms. Multilevel cervical spondylosis with degenerative endplate c hanges, disc space loss, and endplate osteophytes. Advanced multilevel facet arthropathy. Cranial cer vical junction is intact. C1-C2 relationship is maintained. Visualized superior ribs are intact. Soft tissues: Prevertebral soft tissues are normal in thickness. No paravertebral hematomas. No ap ical pneumothoraces. IMPRESSION: Cervical spine without acute fracture or traumatic malalignment. Multilevel cervical spondylosis and associated facet arthropathy. Straightening of cervical lordosis likely related to patient positioning and/or concurrent muscle spa sms. Reviewed by: Howard Polo MD on 03/24/2022 9:29 AM PDT Approved by: oHward Polo MD on 03/24/2022 9:29 AM PDT Station ID: [id number]
--- NOTE | 2022-03-24 09:35 | CT Report ---
PROCEDURE: MAXILLOFACIAL WO INDICATIONS: GLF, R FACIAL SWELLING TECHNIQUE: Noncontrast 1.5 mm thick axial images acquired from the mandible through the frontal sinuses, with co eboni and sagittal reformatting. For radiation dose reduction, the following was used: automated ex posure control, adjustment of mA and/or kV according to patient size. COMPARISON: None. FINDINGS: Image quality: Excellent. Bones and teeth: Orbital swan are intact. Sinus swan show no fracture or deformity. Nasal bones and septum are intact. Visualized portions of the mandible demonstrate no fractures or subluxation. Zygomatic arches are intact. Pterygoid plates are intact. Visualized portions of the skull base an d auditory canals are intact. Sinuses: Scattered ethmoid sinus mucosal thickening. Left greater than right lateral maxillary sinus mucosal thickening. Scattered frontal sinus mucosal thickening. Bilateral mastoid air cells appear cl ear. Soft tissues: There is superficial, subcutaneous soft tissue edema involving the lateral aspect of th e right face overlying the zygomatic arch and posterior periorbital region. No underlying fractures v isualized. No edema, masses, or fluid collections. No enlarged lymph nodes. No soft tissue lacerati ons or debris. Vascular: Visualized vascular structures appear normal in the absence of contrast. Bony vascular fo ramina and canals are intact. IMPRESSION: Superficial, subcutaneous soft tissue contusion/swelling involving the lateral aspect of the right face without underlying facial fractures. Pansinus disease. Reviewed by: Howard Polo MD on 03/24/2022 9:33 AM PDT Approved by: Howard Polo MD on 03/24/2022 9:33 AM PDT Station ID: [id number]
--- NOTE | 2022-03-24 09:38 | XRAY Report ---
PROCEDURE: Chest 1 View X-Ray INDICATIONS: glf, trauma TECHNIQUE: One view of the chest was acquired. COMPARISON: 05/09/2019 FINDINGS: Surgical changes and devices: None. Lungs and pleura: No pleural effusions or pneumothorax. Lungs are clear. Eventration of the right h emidiaphragm. Mediastinum: Mediastinal contours appear normal. Heart size is normal. Bones and chest wall: No suspicious bony lesions. Overlying soft tissues appear unremarkable. IMPRESSION: Chest without acute cardiopulmonary abnormalities. No evidence for acute traumatic injury. Reviewed by: Howard Polo MD on 03/24/2022 9:37 AM PDT Approved by: Howard Ploo MD on 03/24/2022 9:37 AM PDT Station ID: [id number]
[2022-03-24 11:23] VITALS: BP 108/70
== END 2022-03-24 11:00 | disposition short-term general hospital (02) ==
LOC: ED 08:40
DX: I60.9 Nontraumatic subarachnoid hemorrhage, unspecified (principal); I11.9 Hypertensive heart disease without heart failure; W19.XXXA Unspecified fall, initial encounter; Z79.01 Long term (current) use of anticoagulants; Z20.822 Contact with and (suspected) exposure to COVID-19
CPT/HCPCS: 36415; 70450; 70486; 71045; 72125; 72170; 73110; 80053; 82550; 83605; 83690; 84484; 85025; 85610; 85730; 86850; 86900; 86901; 87635; 93005; 96374; 99285; 99291; J7168

== ENCOUNTER 2022-08-29 09:31 | Outpatient (CLI) | payer MEDICARE, MEDICAID ==
[2022-08-29 09:51] LABS: BASOPHILS # (AUTO) 0.1 10^3/uL (0.0-0.1); BASOPHILS % (AUTO) 1.2 %; EOSINOPHILS # (AUTO) 0.1 10^3/uL (0.0-0.7); EOSINOPHILS % (AUTO) 1.4 %; HCT - HEMATOCRIT 42.4 % (37.0-47.0); LYMPHOCYTES # (AUTO) 1.8 10^3/uL (1.5-3.5); LYMPHOCYTES % (AUTO) 24.4 %; MEAN CORPUSCULAR HEMOGLOBIN 29.7 pg (27.0-31.0); MEAN CORPUSCULAR VOLUME 89.8 fL (81.0-99.0); MEAN PLATELET VOLUME 9.2 fL (7.9-10.8); MONOCYTES # (AUTO) 0.6 10^3/uL (0.0-1.0); MONOCYTES % (AUTO) 8.4 %; NEUTROPHILS # (AUTO) 4.6 10^3/uL (1.5-6.6); NEUTROPHILS % (AUTO) 64.3 %; PLT - PLATELET COUNT 194 10^3/uL (130-450); RED BLOOD COUNT 4.72 10^6/uL (4.20-5.40); RED CELL DISTRIBUTION WIDTH 11.9 % (12.0-15.0); WHITE BLOOD COUNT 7.2 x10^3/uL (4.8-10.8)
[2022-08-29 10:14] LABS: ALBUMIN 4.4 g/dL (3.2-5.5); ALBUMIN/GLOBULIN RATIO 1.6 (1.0-2.2); ALKALINE PHOSPHATASE 60 IU/L (42-121); ALT ALANINE AMINOTRANSFERASE 45 IU/L (10-60); AST ASPARTATE AMINOTRANSFERASE 45 IU/L (10-42); BILIRUBIN,TOTAL 1.1 mg/dL (0.2-1.0); BUN - BLOOD UREA NITROGEN 13 mg/dL (6-20); CALCIUM 8.9 mg/dL (8.5-10.3); CARBON DIOXIDE - CO2 25 mmol/L (21-32); CHLORIDE 102 mmol/L (101-111); CHOLESTEROL 172 mg/dL; CREATININE 0.8 mg/dL (0.4-1.0); GFR - MDRD 68 (>89); GLUCOSE 166 mg/dL (70-100); HDL CHOLESTEROL 58 mg/dL; LDL CHOLESTEROL,CALCULATED 84 mg/dL; LDL/HDL RATIO 1.4 (<4.4); POTASSIUM 3.7 mmol/L (3.5-5.0); SODIUM 136 mmol/L (135-145); TOTAL PROTEIN 7.2 g/dL (6.7-8.2); TRIGLYCERIDES 151 mg/dL; VLDL CHOLESTEROL 30 mg/dL
[2022-08-29 10:26] LABS: THYROID STIMULATING HORMONE 3.06 uIU/mL (0.34-5.60)
[2022-08-29 11:41] LABS: ESTIMATED AVERAGE GLUCOSE 157 mg/dL (70-100); HEMOGLOBIN A1c% 7.1 % (4.27-6.07)
== END 2022-08-29 09:32 | disposition home or self-care (01) ==
LOC: LAB 09:31
PROVIDERS: ATTEND Family Medicine
DX: I10 Essential (primary) hypertension (principal); Z95.2 Presence of prosthetic heart valve; M16.0 Bilateral primary osteoarthritis of hip; K21.9 Gastro-esophageal reflux disease without esophagitis; R73.9 Hyperglycemia, unspecified; I48.91 Unspecified atrial fibrillation; I27.20 Pulmonary hypertension, unspecified; I25.10 Atherosclerotic heart disease of native coronary artery without angina pectoris
CPT/HCPCS: 36415; 80053; 80061; 83036; 83721; 84443; 85025

== ENCOUNTER 2022-11-06 21:36 | Emergency (ER) | payer MEDICARE, MEDICAID ==
--- NOTE | 2022-11-06 22:25 | ED Physician Documentation ---
PD HPI ABD PAIN - Stated complaint Stated Complaint: RT FLANK PX - Chief complaint Chief Complaint: Abd Pain - History obtained from History obtained from: Patient, EMS - Additional information Additional information: Along HPI is from patient with some contributory HPI from EMS. Patient is brought in by ambulance with chief complaint of sudden onset of right flank pain. This pain started at approximately 6 PM today while she was at home at rest. The pain waxes and wanes but never resolves since onset, and there have been no apparent exacerbating or ameliorating factors with the exception of transient relief of the symptoms with IV fentanyl given by EMS on route to the ER. By the time of this evaluation, she is telling me that the pain meds feel active entirely worn off and her pain is returned and is severe. She has had nausea and vomiting with the pain as well. She denies having any similar such symptoms in the past. Review of Systems Cardiac: reports: Reviewed and negative Respiratory: reports: Reviewed and negative GI: reports: Abdominal Pain, Nausea. denies: Vomiting : denies: Dysuria, Frequency, Hematuria PD PAST MEDICAL HISTORY - Past Medical History Cardiovascular: Congestive heart failure, Hypertension, High cholesterol, Coronary artery disease, [place], Murmur Respiratory: Pneumonia Neuro: None Endocrine/Autoimmune: None GI: None ULTRASOUND TESTER: None : None HEENT: Macular degeneration Psych: Anxiety, Other Musculoskeletal: Osteoarthritis, Chronic back pain Derm: Psoriasis - Past Surgical History Past Surgical History: Yes Ortho: Other (left ankle surgery (repair of injury)) /ULTRASOUND TESTER: Hysterectomy Cardiovascular: Coronary stent, Valve replacement HEENT: Cataracts, Tonsil/Adenoidectomy Derm: Skin cancer surgery - Present Medications Home Medications: Ambulatory Orders Medication Instructions Recorded Confirmed Amlodipine Besylate 10 mg PO DAILY 12/15/14 02/18/19 Carvedilol 6.25 mg PO BID 12/15/14 02/18/19 Apixaban [Eliquis] 0 mg 10/27/20 Atorvastatin [Lipitor] 0 mg 10/27/20 Ezetimibe [Zetia] 10/27/20 10/27/20 Losartan [Cozaar] 10/27/20 10/27/20 Nitroglycerin [Nitrostat] 10/27/20 Omeprazole 10/27/20 Ondansetron Odt [Zofran Odt] 4 mg TL Q6H PRN #14 tablet 11/07/22 Oxycodone HCl/Acetaminophen 1 each PO Q6HR PRN #14 tablet 11/07/22 [Oxycodone-Acetaminophn 7.5-325] Tamsulosin [Flomax] 1 cap PO DAILY #14 cap 11/07/22 Ciprofloxacin HCl [Cipro] 500 mg PO BID #14 tablet 11/08/22 - Allergies Allergies/Adverse Reactions: Allergies Allergy/AdvReac Type Severity Reaction Status Date / Time diphtheria toxoid,fluid Allergy Unknown Verified 03/24/22 08:54 metformin Allergy Unknown Verified 03/24/22 08:54 Penicillins Allergy Hives Verified 03/24/22 08:54 Wwokwvb-ZQD-TeS Reductase Allergy Unknown Verified 03/24/22 08:54 Inhibitor [Vjhlfqu-Lkb-Xhy Reductase Inhibitor] metals AdvReac Unknown Uncoded 03/24/22 08:54 - Social History Does the pt smoke?: No Smoking Status: Never smoker Does the pt drink ETOH?: No Does the pt have substance abuse?: No - Immunizations Immunizations are current?: No Immunizations: No immun - POLST Patient has POLST: Yes PD ED PE NORMAL - Vitals Vital signs reviewed: Yes - General General: Alert and oriented X 3, Well developed/nourished, Other (obvious moderate painful distress, waxing and waning during H+P) - HEENT HEENT: Moist mucous membranes - Cardiac Cardiac: RRR, No murmur - Respiratory Respiratory: No respiratory distress, Clear bilaterally - Abdomen Abdomen: Normal bowel sounds, Soft, Non tender, Non distended - Back Back: No CVA TTP Results - Vitals Vitals: Oxygen O2 Source Room air - Labs Labs: Laboratory Tests 11/06/22 11/06/22 11/06/22 22:36 22:36 22:45 WBC 10.9 H RBC 4.49 Hgb 13.3 Hct 39.9 MCV 88.9 MCH 29.6 MCHC 33.3 RDW 12.1 Plt Count 180 MPV 9.3 Neut # (Auto) 7.9 H Lymph # (Auto) 1.8 [place] # (Auto) 1.0 Eos # (Auto) 0.1 Baso # (Auto) 0.1 Absolute Nucleated RBC 0.00 Nucleated RBC % 0.0 Sodium 138 Potassium 3.5 Chloride 100 L Carbon Dioxide 27 Anion Gap 11.0 BUN 17 Creatinine 0.6 Estimated GFR (MDRD) 94 Glucose 173 H Calcium 9.5 Total Bilirubin 0.9 AST 32 ALT 35 Alkaline Phosphatase 55 Total Protein 7.5 Albumin 4.9 Globulin 2.6 Albumin/Globulin Ratio 1.9 Lipase 50 Urine Color RED/BLOODY Urine Clarity CLOUDY Urine pH 7.0 Ur Specific Edson 1.025 Urine Protein 100 H Urine Glucose (UA) NEGATIVE Urine Ketones TRACE Urine Occult Blood LARGE H Urine Nitrite NEGATIVE Urine Bilirubin NEGATIVE Urine Urobilinogen 0.2 (NORMAL) Ur Leukocyte Esterase NEGATIVE Urine RBC TNTC H Urine WBC 0-3 Ur Squamous Epith Cells RARE Squamous Urine Bacteria Rare Ur Microscopic Review INDICATED Urine Culture Comments NOT INDICATED - Rads (name of study) CT A/P Radiology: Prelim report reviewed, EMP read indepedently, See rad report PD Medical Decision Making - ED course Complexity details: reviewed results, re-evaluated patient, considered differential, d/w patient, d/w family ED course: presents with right flank pain, attributable to 6mm right ureteral calculus. No h/o kidney stones. Her pain is adequately controlled with 1mg IV dilaudid, although she requires a second dose later in stay due to recurrence of the pain. She is also given IV zofran for nausea with good effect. She is given 0.4mg PO tamsulosin once the CT demonstrates the ureteral stone, and prescriptions for percocet, zofran, and tamsulosin are e-prescribed to her pharmacy of choice. She is given take-home pack of percocet. Results / diagnosis d/w patient, follow up recommendations discussed (advised to contact PMD to arrange for next available appointment as well as to inquire about urology referral). Return precautions reviewed as well. I am prescribing a short course of short-acting opioid pain medication for this patient. 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 I have discussed that the opioids are for short term therapy only, and will not be refilled from the ED. Departure - Departure Disposition: 01 Home, Self Care Clinical Impression: Renal colic on right side Condition: Good Instructions: ED Stone Renal W Colic Prescriptions: Oxycodone HCl/Acetaminophen [Oxycodone-Acetaminophn 7.5-325] 1 each PO Q6HR PRN #14 tablet PRN Reason: Pain Tamsulosin [Flomax] 1 cap PO DAILY #14 cap Ondansetron Odt [Zofran Odt] 4 mg TL Q6H PRN #14 tablet PRN Reason: Nausea / Vomiting Comments: There were no concerning or diagnostic findings on the blood tests performed tonight. There was a moderate amount of blood noticed on the urinalysis under the microscopic exam, which would be expected in the setting of a kidney stone. The CT scan confirms that you have a 6 mm sized kidney stone that is blocking the drainage from the right kidney; this most certainly accounts for your symptoms as well as the blood in the urine. Prescriptions for tamsulosin (medication that can increase the chances of being able to pass the kidney stone without needing a procedure as well as decreasing the time to passing the stone), Percocet (a strong narcotic/opiate pain medication), and ondansetron (an antinausea medication) have all been electronically submitted to the [facility] pharmacy in [place]. I recommend that you contact your primary care provider later this morning as soon as the office is open to arrange for the next available appointment. When you call to arrange for this appointment, please mention [facility] and that it was found that you have a kidney stone causing symptoms (your primary care provider's office might then refer you to a urologist or else they might need to evaluate you themselves first). I am prescribing a short course of narcotic pain medication for you. These are potentially dangerous and addictive medications that should be used carefully. These medications may constipate you. Take an vcmi-rlb-btjscpu stool softener (docusate) twice daily with plenty of water while taking these medications. If you go 24 hours without a bowel movement, take wsem-xdd-[id number] miralax, per package instructions. Do not drink or drive while taking these medications. If you received narcotic or sedating medications while in the emergency department, do not drive for 24 hours. Store this medication in a safe, secure place and out of reach of children. It is a violation of federal law to give or sell this medication to another person or to use in a manner other than prescribed. The ED will not refill narcotic prescriptions, including prescriptions lost or stolen. To dispose of unwanted medications: 1. [facility] [address] in [place] has a medication drop box. They accept prescription medications (in pill form) Thursday through Thursday 9:00 a.m. to 5:00 p.m. 2. The [facility] accepts prescription medications (in pill form only) for disposal year round. Call for more information. 3. Contact the [facility] for the next [facility] sponsored prescription drug collection event. , [phone], or [phone]; Discharge Date/Time: 11/07/22 02:16
[2022-11-06] MEDS ORDERED: HYDROmorphone 1 MG/ML CARPUJECT IVP STA (22:29)
[2022-11-06] MEDS ORDERED: ONDANSETRON 4 MG/2 ML VIAL IVP STA (22:30)
[2022-11-06 22:42] LABS: BASOPHILS # (AUTO) 0.1 10^3/uL (0.0-0.1); EOSINOPHILS # (AUTO) 0.1 10^3/uL (0.0-0.7); EOSINOPHILS % (AUTO) 0.6 %; HCT - HEMATOCRIT 39.9 % (37.0-47.0); HGB - HEMOGLOBIN 13.3 g/dL (12.0-16.0); LYMPHOCYTES # (AUTO) 1.8 10^3/uL (1.5-3.5); LYMPHOCYTES % (AUTO) 16.7 %; MEAN CORPUSCULAR HEMOGLOBIN 29.6 pg (27.0-31.0); MEAN CORPUSCULAR HGB CONC 33.3 g/dL (32.0-36.0); MEAN CORPUSCULAR VOLUME 88.9 fL (81.0-99.0); MEAN PLATELET VOLUME 9.3 fL (7.9-10.8); NEUTROPHILS # (AUTO) 7.9 10^3/uL (1.5-6.6); NEUTROPHILS % (AUTO) 72.3 %; PLT - PLATELET COUNT 180 10^3/uL (130-450); RED BLOOD COUNT 4.49 10^6/uL (4.20-5.40); RED CELL DISTRIBUTION WIDTH 12.1 % (12.0-15.0); WHITE BLOOD COUNT 10.9 x10^3/uL (4.8-10.8)
[2022-11-06 22:58] LABS: ALBUMIN 4.9 g/dL (3.2-5.5); ALBUMIN/GLOBULIN RATIO 1.9 (1.0-2.2); BILIRUBIN,TOTAL 0.9 mg/dL (0.2-1.0); CALCIUM 9.5 mg/dL (8.5-10.3); CREATININE 0.6 mg/dL (0.4-1.0); POTASSIUM 3.5 mmol/L (3.5-5.0); TOTAL PROTEIN 7.5 g/dL (6.7-8.2)
[2022-11-06 23:07] LABS: BILIRUBIN,URINE NEGATIVE (NEGATIVE); GLUCOSE, URINE (UA) NEGATIVE (NEGATIVE); KETONES,URINE (UA) TRACE mg/dL (NEGATIVE); LEUKOCYTE ESTERASE, URINE NEGATIVE (NEGATIVE); NITRITE,URINE NEGATIVE (NEGATIVE); OCCULT BLOOD,URINE LARGE (NEGATIVE); PROTEIN,URINE 100 mg/dL (NEGATIVE); UROBILINOGEN,URINE 0.2 (NORMAL) E.U./dL (NORMAL)
[2022-11-06 23:16] LABS: CLARITY,URINE CLOUDY (CLEAR)
[2022-11-06 23:17] LABS: BACTERIA,URINE Rare /HPF (None Seen); RBC,URINE TNTC /HPF (0-5); SQUAMOUS EPITHELIAL CELL,UR RARE Squamous (<= Few); WBC,URINE 0-3 /HPF (0-5)
[2022-11-06] MEDS ORDERED: TAMSULOSIN 0.4 MG CAPSULE PO STA (23:39)
--- NOTE | 2022-11-07 00:05 | CT Report ---
PROCEDURE: ABDOMEN/PELVIS WO INDICATIONS: right flank pain TECHNIQUE: Noncontrast 5 mm thick sections acquired from the diaphragms to the symphysis. 5 mm coronal and sagi ttal reformats were then performed. For radiation dose reduction, the following was used: automated exposure control, adjustment of mA and/or kV according to patient size. COMPARISON: CT abdomen pelvis 10/27/2019. FINDINGS: Image quality: Excellent. Lung bases: There is mild dependant atelectasis and scarring in the lung bases. Heart:Heart size is enlarged. There is a prosthetic aortic valve. There is a small hiatal hernia. URINARY: Right Kidney and Ureter: There is an obstructing urinary stone in the mid right ureter measuring up to 0.6 cm with mild right hydronephrosis. There is associated perinephric and periureteral fat stran ding. No additional renal stones identified. Left Kidney and Ureter: No stones or hydronephrosis. No hydroureter. Bladder:The urinary bladder is partially distended. No stones. ABDOMEN: Liver: Noncontrast evaluation of the liver demonstrates no discrete mass. Gallbladder: Within normal limits without calcified gallstones. Biliary ducts: No biliary ductal dilatation. Pancreas: Unremarkable. Spleen: Normal in size. Adrenal Glands: No adrenal nodules. Stomach and Bowel: Stomach, small bowel loops, and colon are normal in caliber and wall thickness. T he appendix is normal in appearance. There is colonic diverticulosis without acute diverticulitis. Peritoneum: No abnormal intraperitoneal fluid. No free air. Ventral Wall: No hernia. Abdominal Nodes: No retroperitoneal or mesenteric adenopathy by size criteria. Vessels: Aorta and inferior vena cava are normal in size. PELVIS: Pelvic Organs:The uterus is surgically absent. Pelvic Nodes: No enlarged lymph nodes. Miscellaneous: No inguinal hernias identified. Bones: Visualized osseous structures demonstrate no suspicious focal lesions. IMPRESSION: 1. Obstructing mid right ureteral stone with mild right hydronephrosis. Reviewed by: Yuri Uribe MD on 11/07/2022 12:03 AM [facility] Approved by: Yuri Uribe MD on 11/07/2022 12:03 AM PST Station ID: [id number]
[2022-11-07 01:42] VITALS: BP 172/72
[2022-11-07] MEDS ORDERED: ONDANSETRON ODT 4 MG Prepack 2 TL PRN (01:54)
[2022-11-07] MEDS ORDERED: HYDROmorphone 1 MG/ML CARPUJECT IVP STA (01:54)
[2022-11-07] MEDS ORDERED: oxyCODONE/ACET 5/325 Prepack 4 PO STA (01:54)
== END 2022-11-07 02:16 | disposition home or self-care (01) ==
LOC: EDUNIT# → ED 21:36
DX: N13.2 Hydronephrosis with renal and ureteral calculous obstruction (principal)
CPT/HCPCS: 36415; 74176; 80053; 81001; 83690; 85025; 96374; 96376; 99284; A9270; J1170; 81003; 87086

== ENCOUNTER 2022-11-07 19:04 | Outpatient (CLI) | payer MEDICARE, MEDICAID | END 2022-11-07 19:05 | disposition EMS.NT | LOC: EMS 19:04 | DX: R11.0 Nausea (principal) ==

== ENCOUNTER 2022-11-08 11:46 | Outpatient (CLI) | payer MEDICARE, MEDICAID | END 2022-11-08 11:47 | disposition critical access hospital (66) | LOC: EMS 11:46 | DX: R10.9 Unspecified abdominal pain (principal) | CPT/HCPCS: A0425; A0429 ==

== ENCOUNTER 2022-11-26 09:00 | Outpatient (CLI) | payer MEDICARE, MEDICAID | END 2022-11-26 09:15 | disposition home or self-care (01) | LOC: LAB.N 09:00 | PROVIDERS: ATTEND Nurse Practitioner | DX: R30.0 Dysuria (principal) | CPT/HCPCS: 87086 ==

== ENCOUNTER 2022-12-15 08:28 | Outpatient (CLI) | payer MEDICARE, MEDICAID ==
[2022-12-15 09:03] LABS: CALCIUM 9.3 mg/dL (8.5-10.3); CREATININE 0.7 mg/dL (0.4-1.0); POTASSIUM 4.1 mmol/L (3.5-5.0)
[2022-12-15 09:14] LABS: CREATININE,URINE 170.9 mg/dL
[2022-12-15 13:54] LABS: ESTIMATED AVERAGE GLUCOSE 151 mg/dL (70-100); HEMOGLOBIN A1c% 6.9 % (4.27-6.07)
== END 2022-12-15 08:29 | disposition home or self-care (01) ==
LOC: LAB 08:28
PROVIDERS: ATTEND Family Medicine
DX: B35.1 Tinea unguium (principal); E11.9 Type 2 diabetes mellitus without complications
CPT/HCPCS: 36415; 80048; 82043; 82570; 83036